=== PATIENT | female | born 1980 | race Caucasian/White ===

== ENCOUNTER 2017-07-05 20:10 | Inpatient (IN) | payer BC ==
[2017-07-05 20:33] VITALS: BMI 33.9
--- NOTE | 2017-07-05 21:34 | PDOC ---
History of Present Illness <Wanda Osborne - Last Filed: 07/05/17 23:00> - General History Source: Patient Exam Limitations: No Limitations - History of Present Illness Initial Comments: 07/05/17 23:21 Patient is a 36 year old female with a significant past medical history of chronic migraine headache who presents to the ED with complaints of migraine that began 1 week ago with no signs of relief. Patient reports driving home with 1 week ago when migraine began and has not subsided. Patient reports the migraine pain is non radiating pain localized in her left side of the head behind her left eye. Patient reports pain to be a 10/10 in intensity. She reports going to [facility] ED yesterday night for migraine and was given tylenol and toroidal for pain with no relief. Patient reports intermittent episodes of nausea secondary to migraine headache. Denies chest pain, SOB. Denies vomiting. Denies fever, chills. Denies any other symptoms. Allergies: None Social history: No smoking. No alcohol. No illicit drugs. Surgical history: Hysterectomy PMD: Dr. Berumen. <Vijay Kinsey - Last Filed: 07/05/17 23:23> - General Chief Complaint: Migraine Headache Stated Complaint: MIGRAINE/HEADACHE Time Seen by Provider: 07/05/17 21:22 Past History - Past Medical History HTN: Yes Seizures: Yes Other medical history: migraines - Suicide/Smoking/Psychosocial Hx Smoking History: Never smoked <Wanda Osborne - Last Filed: 07/05/17 23:00> <Vijay Kinsey - Last Filed: 07/05/17 23:23> - Past Medical History Allergies/Adverse Reactions: Allergies Allergy/AdvReac Type Severity Reaction Status Date / Time No Known Allergies Allergy Verified 07/05/17 20:33 Review of Systems - Review of Systems Able to Perform ROS?: Yes Comments:: 07/05/17 23:21 GENERAL/CONSTITUTIONAL: No fever or chills. No weakness. HEAD, EYES, EARS, NOSE AND THROAT: No change in vision. No ear pain or discharge. No sore throat. GASTROINTESTINAL: No nausea, vomiting, diarrhea or constipation. GENITOURINARY: No dysuria, frequency, or change in urination. CARDIOVASCULAR: No chest pain or shortness of breath. RESPIRATORY: No cough, wheezing, or hemoptysis. MUSCULOSKELETAL: No joint or muscle swelling or pain. No neck or back pain. SKIN: No rash NEUROLOGIC:+Headache No vertigo, loss of consciousness, or change in strength/sensation. ENDOCRINE: No increased thirst. No abnormal weight change. HEMATOLOGIC/LYMPHATIC: No anemia, easy bleeding, or history of blood clots. ALLERGIC/IMMUNOLOGIC: No hives or skin allergy. All Other Systems: Reviewed and Negative <Vijay Kinsey - Last Filed: 07/05/17 23:23> *Physical Exam - Vital Signs Last Vital Signs Temp Pulse Resp BP Pulse Ox 98.4 F 93 H 18 144/104 99 07/05/17 20:30 07/05/17 20:30 07/05/17 20:30 07/05/17 20:30 07/05/17 20:30 <Wanda Osborne - Last Filed: 07/05/17 23:00> - Vital Signs Last Vital Signs Temp Pulse Resp BP Pulse Ox 98.4 F 93 H 18 144/104 99 07/05/17 20:30 07/05/17 20:30 07/05/17 20:30 07/05/17 20:30 07/05/17 20:30 - Physical Exam Comments: 07/05/17 23:23 GENERAL: Awake, alert, and fully oriented, in no acute distress HEAD: No signs of trauma EYES: PERRLA, EOMI, sclera anicteric, conjunctiva clear ENT: Auricles normal inspection, hearing grossly normal, nares patent, oropharynx clear without exudates. Moist mucosa NECK: Normal ROM, supple, no lymphadenopathy, JVD, or masses LUNGS: Breath sounds equal, clear to auscultation bilaterally. No wheezes, and no crackles HEART: Regular rate and rhythm, normal S1 and S2, no murmurs, rubs or gallops ABDOMEN: Soft, nontender, normoactive bowel sounds. No guarding, no rebound. No masses EXTREMITIES: Normal range of motion, no edema. No clubbing or cyanosis. No cords, erythema, or tenderness NEUROLOGICAL: Cranial nerves II through XII grossly intact. Normal speech, SKIN: Warm, Dry, normal turgor, no rashes or lesions noted. <Vijay Kinsey - Last Filed: 07/05/17 23:23> Heart Score/ECG Review - ECG Intrepretation Comment:: 07/05/17 23:00 sinus at 74, nl axis, nl interval, no acute st/t wave findings. pr 166, qrs 88, qtc 430 <Wanda Osborne - Last Filed: 07/05/17 23:00> ED Treatment Course - LABORATORY CBC & Chemistry Diagram: 07/05/17 22:49 07/05/17 22:49 - ADDITIONAL ORDERS Additional order review: 07/05/17 22:49 RBC 4.15 MCV 92.7 MCHC 34.7 RDW 13.0 MPV 9.0 Neutrophils % 56.8 Lymphocytes % 33.1 Monocytes % 7.4 Eosinophils % 2.3 Basophils % 0.4 - Medications Given in the ED: ED Medications Discontinued Medications Generic Name Dose Route Start Last Admin Trade Name Peterq PRN Reason Stop Dose Admin Diphenhydramine HCl 25 mg 07/05/17 22:00 07/05/17 22:46 Benadryl Injection - IVPUSH 07/05/17 22:01 25 mg ONCE ONE Administration Ketorolac Tromethamine 30 mg 07/05/17 22:00 07/05/17 22:46 Toradol Injection - IVPUSH 07/05/17 22:01 30 mg ONCE ONE Administration Metoclopramide HCl 10 mg 07/05/17 22:00 07/05/17 22:46 Reglan Injection - IVPUSH 07/05/17 22:01 10 mg ONCE ONE Administration Sodium Chloride 1,000 ml 07/05/17 22:00 07/05/17 22:46 Normal Saline - IV 07/05/17 22:01 1,000 ml ONCE ONE Administration <Vijay Kinsey - Last Filed: 07/05/17 23:23> Medical Decision Making - Medical Decision Making 07/05/17 22:55 a/p: pt sent from Dr. Sanchez ([phone]) for DHE iv q8h for migraine ramirez -no change in headache type -failed outpt therapy -Dr. Sanchez requests admission to Hospitalist. -labs -no change in ramirez type, no meningeal signs, no focal neuro deficits, has had imaging in the past, will hold off on imaging at this time. -hx of hysterectomy - no beta hcg needed 07/05/17 22:58 pt receiving DHE for ramirez. 07/05/17 22:58 case discussed with IM resident who accepts admission to service under Dr. Yan. <Wanda Osborne - Last Filed: 07/05/17 23:00> *DC/Admit/Observation/Transfer - Discharge Dispostion Admit: Yes - Attestations Physician Attestion: 07/05/17 22:58 I, Dr. Wanda Osborne DO, attest that this document has been prepared under my direction and personally reviewed by me in its entirety. I further attest, that it accurately reflects all work, treatment, procedures and medical decision -making performed by me. <Wanda Osborne - Last Filed: 07/05/17 23:00> - Attestations Scribe Attestion: 07/05/17 23:23 Documentation prepared by Vijay Kinsey, acting as lpn or medical assistant for Wanda Osborne DO, MD/. <Vijay Kinsey - Last Filed: 07/05/17 23:23> Diagnosis at time of Disposition: Migraine - Discharge Dispostion Condition at time of disposition: Stable - Referrals Referrals: Deni Berumen DO [Primary Care Provider] -
[2017-07-05] MEDS ORDERED: METOCLOPRAMIDE HCL INJECTION 10 MG/2 ML VIAL IVPUSH ONE (22:00)
[2017-07-05] MEDS ORDERED: KETOROLAC TROMETHAMINE 30 MG/1 ML VIAL IVPUSH ONE (22:00)
[2017-07-05] MEDS ORDERED: SODIUM CHLORIDE 0.9% 1000 ML INFUS.BAG IV ONE (22:00)
[2017-07-05] MEDS ORDERED: MAGNESIUM SULF 50% (8.12 MEQ/2 ML-1 GM VIAL) IVPB ONE (22:00)
[2017-07-05] MEDS ORDERED: DIHYDROERGOTAMINE MESYLATE 1 MG/1 ML AMPULE IVPB ONE (22:10)
[2017-07-05] MEDS ORDERED: METOCLOPRAMIDE HCL INJECTION 10 MG/2 ML VIAL ONE (22:17)
[2017-07-05] MEDS ORDERED: MAGNESIUM SULF 50% (8.12 MEQ/2 ML-1 GM VIAL) ONE (22:18)
[2017-07-05] MEDS ORDERED: KETOROLAC TROMETHAMINE 30 MG/1 ML VIAL ONE (22:18)
[2017-07-05 23:06] LABS: BASOPHIL 0.4 % (0-2.0); EOSINOPHIL 2.3 % (0-4.5); MCH 32.2 pg (25.7-33.7); MCHC 34.7 g/dl (32.0-36.0); MEAN CELL VOLUME 92.7 fl (80-96); NEUTROPHILS 56.8 % (42.8-82.8); PLATELET COUNT 225 K/MM3 (134-434); WHITE BLOOD COUNT 7.3 K/mm3 (4.0-10.0)
--- NOTE | 2017-07-05 23:15 | HP ---
CHIEF COMPLAINT: sever migraine headache PCP:Dr. Berumen. HISTORY OF PRESENT ILLNESS: Patient is a 36 year old female with a significant past medical history of chronic migraine headache who presents to the ED with complaints of migraine that began 1 week ago with no signs of relief. Patient reports driving home with 1 week ago when migraine began and has not subsided. Patient reports the migraine pain is non radiating pain localized in her left side of the head behind her left eye. Patient reports pain to be a 10/10 in intensity. She reports going to [facility] ED yesterday night for migraine and was given tylenol and toroidal for pain with no relief. Patient reports intermittent episodes of nausea secondary to migraine headache. She Denies chest pain, SOB, palpitation. Denies vomiting, diarrhea, constipation. Denies fever, chills, anxiety, depression. Denies any other symptoms. 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 -) 0.5 mg IVPB Q8H [facility] Last Admin: 07/06/17 13:19 Dose: 0.5 mg Diphenhydramine HCl (Benadryl Injection -) 25 mg IVPB Q8H [facility] Last Admin: 07/06/17 12:38 Dose: 25 mg Enoxaparin Sodium (Lovenox -) 40 mg SQ DAILY [facility] Last Admin: 07/06/17 10:27 Dose: 40 mg Hydromorphone HCl (Dilaudid Injection -) 0.5 mg IM Q4H PRN PRN Reason: PAIN Ketorolac Tromethamine (Toradol Injection -) 30 mg IVPB DAILY PRN PRN Reason: PAIN Stop: 07/11/17 09:57 Metoclopramide HCl (Reglan Injection -) 10 mg IVPB Q8H [facility] Last Admin: 07/06/17 12:38 Dose: 10 mg Topiramate (Topamax -) 100 mg PO BID [facility] HOME MEDICATIONS: REVIEW OF SYSTEMS CONSTITUTIONAL: Absent: Headache,fever, chills, diaphoresis, generalized weakness, malaise, loss of appetite, weight change HEENT: Absent: rhinorrhea, nasal congestion, throat pain, throat swelling, difficulty swallowing, mouth swelling, ear pain, eye pain, visual changes CARDIOVASCULAR: Absent: chest pain, syncope, palpitations, irregular heart rate, lightheadedness , peripheral edema RESPIRATORY: Absent: cough, shortness of breath, dyspnea with exertion, orthopnea, wheezing, stridor, hemoptysis GASTROINTESTINAL: Absent: abdominal pain, abdominal distension, nausea, vomiting, diarrhea, constipation, melena, hematochezia GENITOURINARY: Absent: dysuria, frequency, urgency, hesitancy, hematuria, flank pain, genital pain MUSCULOSKELETAL: Absent: myalgia, arthralgia, joint swelling, back pain, neck pain SKIN: Absent: rash, itching, pallor HEMATOLOGIC/IMMUNOLOGIC: Absent: easy bleeding, easy bruising, lymphadenopathy, frequent infections ENDOCRINE: Absent: unexplained weight gain, unexplained weight loss, heat intolerance, cold intolerance NEUROLOGIC: Absent: headache, focal weakness or paresthesias, dizziness, unsteady gait, seizure, mental status changes, bladder or bowel incontinence PSYCHIATRIC: Absent: anxiety, depression, suicidal or homicidal ideation, hallucinations. PHYSICAL EXAMINATION Vital Signs - 24 hr 07/05/17 20:30 Temperature 98.4 F Pulse Rate 93 H Respiratory 18 Rate Blood Pressure 144/104 O2 Sat by Pulse 99 Oximetry (%) GENERAL: Awake, alert, and fully oriented, in mild distress. HEAD: Normal with no signs of trauma. EYES: Pupils equal, round and reactive to light, extraocular movements intact, sclera anicteric, conjunctiva clear. No lid lag. EARS, NOSE, THROAT: Moist mucous membranes. NECK: Normal range of motion, supple without lymphadenopathy, JVD, or masses. LUNGS: Breath sounds equal, clear to auscultation bilaterally. No wheezes, and no crackles. No accessory muscle use. HEART: Regular rate and rhythm, normal S1 and S2 without murmur, rub or gallop. ABDOMEN: Soft, nontender, not distended, normoactive bowel sounds, no guarding, no rebound. MUSCULOSKELETAL: Normal range of motion at all joints. No bony deformities or tenderness. No CVA tenderness. LOWER EXTREMITIES: 2+ pulses, warm, well-perfused. No calf tenderness. No peripheral edema. NEUROLOGICAL: Cranial nerves II-XII intact. Normal speech. Normal gait. PSYCHIATRIC: Cooperative. Good eye contact. Appropriate mood and affect. SKIN: Warm, dry, no rashes or lesions noted, normal capillary refill. CBC, BMP 07/06/17 09:30 07/06/17 09:30 ASSESSMENT/PLAN: 36 yo F with PMX of chronic migraine, presented to the ED with one week history of sever, persistent migraine headache that failed out patient treatment. admitted to observation for acute migraine attack. #Acute migraine attack * Dihydroergotamine 0.5 IVPB Q8H X 3days,will titrate if tolerates and JOYA continue, * Zofran for n/v control * Dilauded 0.5 Q 2 Hr for pain * Neurology consultation Dr Alarcon #HTN * continue home med verapamil 120 daily * monitor #h/o seizure disorder * last seizure few months ago * continue home meds Topramax, Amitriptilin, verapamil * #FEN * F: on no fluids * E : monitor * N: low sodium diet #Prophylaxis * DVT: SCDs, both legs * GI: not indicated #Dispo * admit to observ for IV DHE Visit type - Emergency Visit Emergency Visit: Yes ED Registration Date: 07/05/17 Care time: The patient presented to the Emergency Department on the above date and was hospitalized for further evaluation of their emergent condition. - New Patient This patient is new to me today: Yes Date on this admission: 07/06/17 - Critical Care Critical Care patient: No
[2017-07-05 23:39] LABS: ALBUMIN 3.4 g/dl (3.4-5.0); ALK PHOS 58 U/L (45-117); ANION GAP 7 (8-16); BILIRUBIN,TOTAL 0.3 mg/dL (0.2-1.0); CALCIUM 8.7 mg/dL (8.5-10.1); CO2 29 mmol/L (21-32); CREATININE 0.6 mg/dL (0.55-1.02); GLUCOSE,RANDOM 102 mg/dL (74-106); MAGNESIUM 1.9 mg/dL (1.8-2.4); SGOT/AST 27 U/L (15-37); SGPT/ALT 51 U/L (12-78); TOT PROT 6.6 g/dl (6.4-8.2)
[2017-07-05] MEDS ORDERED: DIHYDROERGOTAMINE MESYLATE 1 MG/1 ML AMPULE IVPUSH ONE (23:45)
--- NOTE | 2017-07-05 23:58 | HP ---
Admitting History and Physical - Primary Care Physician PCP: Deni Berumen - Admission Chief Complaint: Headache History of Present Illness: 36 yo F h/o migraine presented to the ED with intractable headache x 1 week. Patient states that she'd get migraine flare-up once in a while despite being on medications for chronic migraine, for which she would need dihydroergotamine IV Q8H for days. The quality and type of headache remain unchanged compared to her regular migraine symptom but the intensity of 10/10 this time. She denies focal weakness, facial droop, vision change, fever, chills, shortness of breath or chest pain. 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 - Past Surgical History Past Surgical History: Yes: Hysterectomy - Smoking History Smoking history: Never smoked - Alcohol/Substance Use Hx Alcohol Use: No History of Substance Use: reports: None Home Medications - Allergies Allergies/Adverse Reactions: Allergies Allergy/AdvReac Type Severity Reaction Status Date / Time No Known Allergies Allergy Verified 07/05/17 20:33 Review of Systems - Review of Systems Constitutional: reports: Other (uncomfortable due to persistent headache) Eyes: denies: Blurred Vision, Double Vision, Photophobia Neck: denies: Stiffness, Tenderness Cardiovascular: reports: No Symptoms Respiratory: reports: No Symptoms Gastrointestinal: reports: No Symptoms Genitourinary: reports: No Symptoms Musculoskeletal: reports: No Symptoms Integumentary: reports: No Symptoms Neurological: reports: Headache. denies: Change in Speech, Confusion, Dizziness , Numbness, Parasthesia Endocrine: reports: No Symptoms Physical Examination Vital Signs: Vital Signs Temperature 98.4 F 07/05/17 20:30 Pulse Rate 93 H 07/05/17 20:30 Respiratory Rate 18 07/05/17 20:30 Blood Pressure 144/104 07/05/17 20:30 O2 Sat by Pulse Oximetry (%) 99 07/05/17 20:30 Constitutional: Yes: Well Nourished Eyes: Yes: WNL HENT: Yes: WNL Neck: Yes: WNL Cardiovascular: Yes: Regular Rate and Rhythm Respiratory: Yes: CTA Bilaterally Gastrointestinal: Yes: WNL, Normal Bowel Sounds, Soft Extremities: Yes: WNL Neurological: Yes: Alert, Oriented, Cran Nerves II-XII Intact ...Motor Strength: WNL Assessment/Plan 36 yo F admitted to med-surg for acute migraine attack. Acute migraine attack - Dihydroergotamine IVPB Q8H - Zofran for n/v control HTN - Cont. home meds h/o seizure disorder - Cont. home meds Prophylaxis - DVT: SCDs - GI: not indicated Dispo - Awaiting ED nurse to obtain med list - Admit to obs Visit type - Emergency Visit Emergency Visit: Yes ED Registration Date: 07/05/17 Care time: The patient presented to the Emergency Department on the above date and was hospitalized for further evaluation of their emergent condition. - New Patient This patient is new to me today: Yes Date on this admission: 07/06/17 - Critical Care Critical Care patient: No
[2017-07-06] MEDS ORDERED: ONDANSETRON *ODT* 4 MG TABLET SL PRN (00:13)
[2017-07-06] MEDS ORDERED: METOCLOPRAMIDE HCL INJECTION 10 MG/2 ML VIAL IVPUSH PRN (00:16)
--- NOTE | 2017-07-06 03:28 | PN ---
Teaching Attending Note Name of Resident: Valdez Sarah ATTENDING PHYSICIAN STATEMENT I saw and evaluated the patient. I reviewed the resident's note and discussed the case with the resident. I agree with the resident's findings and plan as documented. OBJECTIVE: Last Vital Signs Temp Pulse Resp BP Pulse Ox 98.4 F 93 H 18 144/104 99 07/05/17 20:30 07/05/17 20:30 07/05/17 20:30 07/05/17 20:30 07/05/17 20:30 ASSESSMENT AND PLAN: The patient is a 36 year old female with a significant past medical history of chronic migraine headache, s/p ADRI, who presented to the ED with status migrainosis at the encouragement of her neurologist and is being placed on observation for further evaluation and treatment including IV DHE. #Status migrainosis with intractable pain No evidence of meningitis / encephalitis / intracranial hemorrhage Risks and benefits of neuroimagine were discussed with the patient by the ED and by our team (by resident and again by me) and she elected against any neuroimaging Continue DHE IV Q6hrs Dilaudid 0.5mg [id number] for breakthrough pain Neurology consult See resident note for full details
[2017-07-06] MEDS: DIHYDROERGOTAMINE MESYLATE 1 MG/1 ML AMPULE IVPB SCH ×3 (05:18→21:03)
[2017-07-06] MEDS ORDERED: HYDROmorphone HCL CARPU-JECT 1 MG/1 ML DISP.SYRIN ONE (07:53)
[2017-07-06] MEDS: HYDROmorphone HCL CARPU-JECT 1 MG/1 ML DISP.SYRIN IM PRN ×2 (07:57→11:25)
[2017-07-06 10:09] LABS: MCHC 34.6 g/dl (32.0-36.0); MEAN CELL VOLUME 92.4 fl (80-96); MEAN PLT VOLUME 8.5 fl (7.5-11.1); PLATELET COUNT 254 K/MM3 (134-434)
[2017-07-06] MEDS: ENOXAPARIN NA (PORCINE) 40 MG/0.4 ML DISP.SYRIN SQ SCH (10:27)
[2017-07-06 10:34] LABS: ANION GAP 6 (8-16); CALCIUM 9.1 mg/dL (8.5-10.1); CO2 27 mmol/L (21-32); CREATININE 0.6 mg/dL (0.55-1.02); GLUCOSE,RANDOM 81 mg/dL (74-106)
[2017-07-06] MEDS: METOCLOPRAMIDE HCL INJECTION 10 MG/2 ML VIAL IVPB SCH ×2 (12:38→20:32)
[2017-07-06] MEDS ORDERED: DIHYDROERGOTAMINE MESYLATE 1 MG/1 ML AMPULE IVPB SCH ×2 (13:00→18:00)
--- NOTE | 2017-07-06 15:17 | CON.NEURO ---
Consult - History of Present Illness History of Present Illness: 36 year old female, pt known to me, with a significant past medical history of chronic migraine headache who presents to the ED with complaints of migraine that began 1 week ago with no signs of relief. Patient reports driving home with 1 week ago when migraine began and has not subsided. Patient reports the migraine pain is non radiating pain localized in her left side of the head behind her left eye. Patient reports pain to be a 10/10 in intensity. She reports going to [facility] ED yesterday night for migraine and was given tylenol and toroidal for pain with no relief. Patient reports intermittent episodes of nausea secondary to migraine headache. HX of occipital neuralgia and receives RF ablation for this at [facility]. Feels these JOYA are more related to migraines. takes occ. Dilaudid when JOYA overpowering; no hx of addiction tho this. receives Botox as outpt. HX of seizures-stable. 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 - Past Surgical History Past Surgical History: Yes: Hysterectomy - Alcohol/Substance Use Hx Alcohol Use: No History of Substance Use: reports: None - Smoking History Smoking history: Never smoked Home Medications - Allergies Allergies/Adverse Reactions: Allergies Allergy/AdvReac Type Severity Reaction Status Date / Time No Known Allergies Allergy Verified 07/05/17 20:33 - Home Medications Home Medications: Ambulatory Orders Amitriptyline HCl [Elavil -] 50 mg PO HS 07/06/17 Topiramate [Topamax] 100 mg PO BID 07/06/17 Verapamil HCl [Verapamil ER Pm] 120 mg PO DAILY 07/06/17 Physical Exam-Neuro Vital Signs: Vital Signs Temperature 98.0 F 07/06/17 08:01 Pulse Rate 80 07/06/17 08:01 Respiratory Rate 18 07/06/17 08:01 Blood Pressure 140/98 07/06/17 08:01 O2 Sat by Pulse Oximetry (%) 99 07/06/17 08:01 Constitutional: Yes: Well Nourished Neck: Yes: WNL Cardiovascular: Yes: Regular Rate and Rhythm Respiratory: Yes: CTA Bilaterally Labs: CBC, BMP 07/06/17 09:30 07/06/17 09:30 - Neuro Exam Level Of Consciousness: Yes: Alert, Oriented to Person Eyes: Yes: PERRLA Cranial Nerves II-XII Intact: Yes Babinski: Absent Response to light touch: Normal Response to pain prick: Normal Motor Strength: 5/5: Left Arm, Right Arm, Left Leg, Right Leg Gait: Normal Problem List - Problems (1) Status migrainosus Code(s): G43.901 - MIGRAINE, UNSP, NOT INTRACTABLE, WITH STATUS MIGRAINOSUS Assessment/Plan Status migrainousis JOYA x one week, intractable; receives BOTOX as outpt, no repsosne to steroids, dilaudid, triptans, and recent Er admission for JOYA; started on DHE protocol 0.5 IV q8--x 3 days; inc DHE 0.[address] Berumen [phone]
[2017-07-06] MEDS ORDERED: HYDROmorphone HCL CARPU-JECT 1 MG/1 ML DISP.SYRIN IM PRN (16:21)
[2017-07-06] MEDS ORDERED: VERAPAMIL HCL 120 MG TABLET PO SCH (16:30)
[2017-07-06] MEDS ORDERED: PT OWN MED DRAWER 7, Y5N ONE ×2 (16:59→17:27)
--- NOTE | 2017-07-06 17:27 | PN ---
Physical Exam: SUBJECTIVE: Patient seen and examined at bedside. Has had 2 infusions so far. Each time got about 1-1 1/2 hours of headache relief and then returned. OBJECTIVE: Vital Signs Period Temp Pulse Resp BP Sys/Ames Pulse Ox Last 24 Hr 97.8 F-98.3 F 78-91 16-18 138-145/86-100 99-100 GENERAL: The patient is awake, alert, and fully oriented, in no acute distress. LUNGS: Breath sounds equal, clear to auscultation bilaterally, no wheezes, no crackles, no accessory muscle use. HEART: Regular rate and rhythm, S1, S2 without murmur, rub or gallop. ABDOMEN: Soft, nontender, nondistended, normoactive bowel sounds, no guarding, no rebound, no hepatosplenomegaly, no masses. EXTREMITIES: 2+ pulses, warm, well-perfused, no edema. NEUROLOGICAL: Cranial nerves II through XII grossly intact. Normal speech, gait not observed. Laboratory Results - last 24 hr 07/06/17 07/06/17 09:30 09:30 WBC 9.0 RBC 4.71 Hgb 15.0 D Hct 43.5 MCV 92.4 MCH 32.0 MCHC 34.6 RDW 13.0 Plt Count 254 MPV 8.5 Sodium 138 Potassium 3.8 Chloride 105 Carbon Dioxide 27 Anion Gap 6 L BUN 12 Creatinine 0.6 Random Glucose 81 D Calcium 9.1 Active Medications Generic Name Dose Route Start Last Admin Trade Name Freq PRN Reason Stop Dose Admin Amitriptyline HCl 50 mg 07/06/17 22:00 Elavil - PO HS [facility] Dihydroergotamine Mesylate 0.75 mg 07/06/17 18:00 D.H.E. - IVPB Q8H-IV [facility] Diphenhydramine HCl 25 mg 07/06/17 12:30 07/06/17 12:38 Benadryl Injection - IVPB 25 mg Q8H [facility] Administration Enoxaparin Sodium 40 mg 07/06/17 10:00 07/06/17 10:27 Lovenox - SQ 40 mg DAILY [facility] Administration Hydromorphone HCl 0.5 mg 07/06/17 16:21 Dilaudid Injection - IM Q4H PRN PAIN Ketorolac Tromethamine 30 mg 07/06/17 09:58 Toradol Injection - IVPB 07/11/17 09:57 DAILY PRN PAIN Metoclopramide HCl 10 mg 07/06/17 12:30 07/06/17 12:38 Reglan Injection - IVPB 10 mg Q8H [facility] Administration Topiramate 100 mg 07/06/17 22:00 Topamax - PO BID [facility] ASSESSMENT/PLAN 36 year-old female with a PMH significant for occipital neuralgia, migraine, seizure disorder and s/p ADRI. Regularly followed by Dr. Berumen. Admitted for intractable migraine on DHE IV protocol therapy for minimum of three (3) days. Status migrainosis with intractable pain --continue DHE infusion protocol; dose increased today by Dr. Berumen --benadryl and reglan q8h --dilaudid, toradol PRN --restarted home topiramate and amitriptyline; did NOT restart home verapramil to due interaction warning with DHE --Dr. Berumen following DVT prophylaxis: subq lovenox Dispo: continues to require inpatient care. Full code. Visit type - Emergency Visit Emergency Visit: Yes ED Registration Date: 07/05/17 Care time: The patient presented to the Emergency Department on the above date and was hospitalized for further evaluation of their emergent condition. - New Patient This patient is new to me today: Yes Date on this admission: 07/06/17 - Critical Care Critical Care patient: No
[2017-07-06] MEDS: KETOROLAC TROMETHAMINE 30 MG/1 ML VIAL IVPB PRN (17:40)
[2017-07-06] MEDS: TOPIRAMATE 100 MG TABLET PO SCH (21:05)
[2017-07-06] MEDS ORDERED: AMITRIPTYLINE HCL 50 MG TABLET PO SCH (22:00)
[2017-07-07] MEDS: METOCLOPRAMIDE HCL INJECTION 10 MG/2 ML VIAL IVPB SCH ×2 (04:36→15:20)
[2017-07-07] MEDS: DIHYDROERGOTAMINE MESYLATE 1 MG/1 ML AMPULE IVPB SCH ×4 (05:20→17:03)
[2017-07-07 08:15] LABS: BASOPHIL 0.3 % (0-2.0); EOSINOPHIL 3.2 % (0-4.5); MCH 32.2 pg (25.7-33.7); MCHC 34.6 g/dl (32.0-36.0); MEAN CELL VOLUME 93.1 fl (80-96); MEAN PLT VOLUME 8.9 fl (7.5-11.1); NEUTROPHILS 69.2 % (42.8-82.8); PLATELET COUNT 226 K/MM3 (134-434); RDW 12.8 % (11.6-15.6); WHITE BLOOD COUNT 8.5 K/mm3 (4.0-10.0)
[2017-07-07 08:43] LABS: ALBUMIN 3.7 g/dl (3.4-5.0); ALK PHOS 71 U/L (45-117); ANION GAP 4 (8-16); BILIRUBIN,TOTAL 0.7 mg/dL (0.2-1.0); CALCIUM 9.5 mg/dL (8.5-10.1); CO2 28 mmol/L (21-32); CREATININE 0.6 mg/dL (0.55-1.02); GLUCOSE,RANDOM 82 mg/dL (74-106); MAGNESIUM 2.4 mg/dL (1.8-2.4); SGOT/AST 35 U/L (15-37); SGPT/ALT 57 U/L (12-78); TOT PROT 7.5 g/dl (6.4-8.2)
--- NOTE | 2017-07-07 08:44 | EKG ---
Test Reason : Blood Pressure : / mmHG Vent. Rate : 074 BPM Atrial Rate : 074 BPM P-R Int : 166 ms QRS Dur : 088 ms QT Int : 388 ms P-R-T Axes : 058 059 059 degrees QTc Int : 430 ms NORMAL SINUS RHYTHM NORMAL ECG NO PREVIOUS ECGS AVAILABLE Confirmed by MD JL, KENNEDY ([id number]) on 07/07/2017 8:43:44 AM Referred By: Confirmed By:KENNEDY PARIKH MD
[2017-07-07] MEDS: ENOXAPARIN NA (PORCINE) 40 MG/0.4 ML DISP.SYRIN SQ SCH (10:00)
[2017-07-07] MEDS ORDERED: PT OWN MED DRAWER 7, Y5N ONE ×3 (10:03→21:45)
[2017-07-07] MEDS: TOPIRAMATE 100 MG TABLET PO SCH ×2 (10:05→22:03)
[2017-07-07] MEDS ORDERED: DEXTROSE 5%-NORMAL SALINE 1,000 ML IV SCH ×2 (11:15→17:00)
--- NOTE | 2017-07-07 16:35 | PN ---
Progress Note (short form) - Note Progress Note: 36 year old female, pt known to me, with a significant past medical history of chronic migraine headache who presents to the ED with complaints of migraine that began 1 week ago with no signs of relief. Patient reports driving home with 1 week ago when migraine began and has not subsided. Patient reports the migraine pain is non radiating pain localized in her left side of the head behind her left eye. Patient reports pain to be a 10/10 in intensity. She reports going to [facility] ED yesterday night for migraine and was given tylenol and toroidal for pain with no relief. Patient reports intermittent episodes of nausea secondary to migraine headache. HX of occipital neuralgia and receives RF ablation for this at [facility]. Feels these JOYA are more related to migraines. takes occ. Dilaudid when JOYA overpowering; no hx of addiction tho this. receives Botox as outpt. HX of seizures-stable. 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 - Past Surgical History Past Surgical History: Yes: Hysterectomy - Alcohol/Substance Use Hx Alcohol Use: No History of Substance Use: reports: None - Smoking History Smoking history: Never smoked Home Medications - Allergies Allergies/Adverse Reactions: Allergies Allergy/AdvReac Type Severity Reaction Status Date / Time No Known Allergies Allergy Verified 07/05/17 20:33 - Home Medications Home Medications: Ambulatory Orders Amitriptyline HCl [Elavil -] 50 mg PO HS 07/06/17 Topiramate [Topamax] 100 mg PO BID 07/06/17 Verapamil HCl [Verapamil ER Pm] 120 mg PO DAILY 07/06/17 Physical Exam-Neuro Vital Signs: Vital Signs Temperature 98.4 F 07/07/17 14:39 Pulse Rate 77 07/07/17 14:39 Respiratory Rate 18 07/07/17 14:39 Blood Pressure 142/97 07/07/17 14:39 O2 Sat by Pulse Oximetry (%) 99 07/06/17 16:00 Constitutional: Yes: Well Nourished Neck: Yes: WNL Cardiovascular: Yes: Regular Rate and Rhythm Respiratory: Yes: CTA Bilaterally Labs: CBCD WBC 8.5 K/mm3 (4.0-10.0) 07/07/17 07:00 RBC 4.64 M/mm3 (3.60-5.2) 07/07/17 07:00 Hgb 14.9 GM/dL (10.7-15.3) 07/07/17 07:00 Hct 43.2 % (32.4-45.2) 07/07/17 07:00 MCV 93.1 fl (80-96) 07/07/17 07:00 MCHC 34.6 g/dl (32.0-36.0) 07/07/17 07:00 RDW 12.8 % (11.6-15.6) 07/07/17 07:00 Plt Count 226 K/MM3 (134-434) 07/07/17 07:00 MPV 8.9 fl (7.5-11.1) 07/07/17 07:00 CMP Sodium 140 mmol/L (136-145) 07/07/17 07:00 Potassium 5.0 mmol/L (3.5-5.1) D 07/07/17 07:00 Chloride 108 mmol/L (98-107) H 07/07/17 07:00 Carbon Dioxide 28 mmol/L (21-32) 07/07/17 07:00 Anion Gap 4 (8-16) L 07/07/17 07:00 BUN 14 mg/dL (7-18) 07/07/17 07:00 Creatinine 0.6 mg/dL (0.55-1.02) 07/07/17 07:00 Creat Clearance w eGFR > 60 (>60) 07/07/17 07:00 Calcium 9.5 mg/dL (8.5-10.1) 07/07/17 07:00 Total Bilirubin 0.7 mg/dL (0.2-1.0) D 07/07/17 07:00 AST 35 U/L (15-37) D 07/07/17 07:00 ALT 57 U/L (12-78) 07/07/17 07:00 Alkaline Phosphatase 71 U/L (45-117) D 07/07/17 07:00 Total Protein 7.5 g/dl (6.4-8.2) 07/07/17 07:00 Albumin 3.7 g/dl (3.4-5.0) 07/07/17 07:00 - Neuro Exam Level Of Consciousness: Yes: Alert, Oriented to Person Eyes: Yes: PERRLA Cranial Nerves II-XII Intact: Yes Babinski: Absent Response to light touch: Normal Response to pain prick: Normal Motor Strength: 5/5: Left Arm, Right Arm, Left Leg, Right Leg Gait: Normal Problem List - Problems (1) Status migrainosus Code(s): G43.901 - MIGRAINE, UNSP, NOT INTRACTABLE, WITH STATUS MIGRAINOSUS Assessment/Plan Status migrainousis JOYA x one week, intractable; receives BOTOX as outpt, no response to steroids, dilaudid, triptans, and recent Er admission for JOYA; started on inc DHE 1mg TID and Add depakon 500TID plan for Dc in AM if doing better Dr Berumen [phone] Problem List - Problems (1) Status migrainosus Code(s): G43.901 - MIGRAINE, UNSP, NOT INTRACTABLE, WITH STATUS MIGRAINOSUS
--- NOTE | 2017-07-07 16:47 | PN ---
Physical Exam: SUBJECTIVE: Patient seen and examined. Despite increased dose of DHE, still only getting 1 to 1 1/2 hours of relief per administration. Tearful. OBJECTIVE: Vital Signs Period Temp Pulse Resp BP Sys/Ames Pulse Ox Last 24 Hr 18 GENERAL: The patient is awake, alert, and fully oriented, in mild distress secondary to headache pain. LUNGS: Breath sounds equal, clear to auscultation bilaterally, no wheezes, no crackles, no accessory muscle use. HEART: Regular rate and rhythm, S1, S2 without murmur, rub or gallop. ABDOMEN: Soft, nontender, nondistended, normoactive bowel sounds, no guarding, no rebound, no hepatosplenomegaly, no masses. EXTREMITIES: 2+ pulses, warm, well-perfused, no edema. NEUROLOGICAL: Cranial nerves II through XII grossly intact. Normal speech, gait not observed. Active Medications Generic Name Dose Route Start Last Admin Trade Name Freq PRN Reason Stop Dose Admin Amitriptyline HCl 50 mg 07/07/17 22:00 Elavil - PO HS EULALIA Dihydroergotamine Mesylate 1 mg 07/07/17 18:00 D.H.E. - IVPB Q8H-IV EULALIA Diphenhydramine HCl 25 mg 07/06/17 12:30 07/07/17 13:23 Benadryl Injection - IVPB 25 mg Q8H EULALIA Administration Enoxaparin Sodium 40 mg 07/06/17 10:00 07/07/17 10:00 Lovenox - SQ 40 mg DAILY EULALIA Administration Hydromorphone HCl 0.5 mg 07/06/17 16:21 07/07/17 11:03 Dilaudid Injection - IM 0.5 mg Q4H PRN Administration PAIN Dextrose/Sodium Chloride 1,000 mls @ 75 mls/hr 07/07/17 11:15 07/07/17 13:23 D5-Ns - IV 75 mls/hr ASDIR EULALIA Administration Ketorolac Tromethamine 30 mg 07/06/17 09:58 07/06/17 17:40 Toradol Injection - IVPB 07/11/17 09:57 30 mg DAILY PRN Administration PAIN Metoclopramide HCl 10 mg 07/06/17 12:30 07/07/17 15:20 Reglan Injection - IVPB 10 mg Q8H EULALIA Administration Topiramate 100 mg 07/06/17 22:00 07/07/17 10:05 Topamax - PO 100 mg BID EULALIA Administration Valproate Sodium 500 mg 07/07/17 22:00 Depacon Injection - IVPB TID EULALIA ASSESSMENT/PLAN 36 year-old female with a PMH significant for occipital neuralgia, migraine, seizure disorder and s/p ADRI. Regularly followed by Dr. Berumen. Admitted for intractable migraine on DHE IV protocol therapy. Status migrainosis with intractable pain --continue DHE infusion --benadryl and reglan q8h --dilaudid, toradol PRN --valproate IV 500mg TID --restarted home topiramate and amitriptyline; do not restart home verapramil due to interaction with DHE --Dr. Berumen following F/E/N Fluids: decereased PO intake; gentle IV fluids (watch BP) Electrolytes: replete as indicated Nutrition: sodium controlled DVT prophylaxis: subq lovenox Dispo: continues to require inpatient care. Full code. Visit type - Emergency Visit Emergency Visit: Yes ED Registration Date: 07/07/17 Care time: The patient presented to the Emergency Department on the above date and was hospitalized for further evaluation of their emergent condition. - New Patient This patient is new to me today: No - Critical Care Critical Care patient: No
[2017-07-07] MEDS: AMITRIPTYLINE HCL 25 MG TABLET (FP) PO SCH (22:02)
[2017-07-07] MEDS: KETOROLAC TROMETHAMINE 30 MG/1 ML VIAL IVPB PRN (22:02)
[2017-07-07] MEDS: VALPROATE SODIUM 500 MG/5 ML VIAL IVPB SCH (23:12)
[2017-07-08] MEDS: METOCLOPRAMIDE HCL INJECTION 10 MG/2 ML VIAL IVPB SCH ×3 (01:59→17:41)
[2017-07-08] MEDS: DIHYDROERGOTAMINE MESYLATE 1 MG/1 ML AMPULE IVPB SCH ×3 (02:43→18:30)
[2017-07-08] MEDS: VALPROATE SODIUM 500 MG/5 ML VIAL IVPB SCH ×3 (06:48→21:00)
[2017-07-08] MEDS ORDERED: PT OWN MED DRAWER 7, Y5N ONE ×2 (09:41→21:31)
[2017-07-08] MEDS: ENOXAPARIN NA (PORCINE) 40 MG/0.4 ML DISP.SYRIN SQ SCH (11:21)
[2017-07-08] MEDS: TOPIRAMATE 100 MG TABLET PO SCH ×2 (11:22→23:00)
--- NOTE | 2017-07-08 11:22 | EKG ---
Test Reason : Blood Pressure : / mmHG Vent. Rate : 074 BPM Atrial Rate : 074 BPM P-R Int : 176 ms QRS Dur : 094 ms QT Int : 402 ms P-R-T Axes : 058 070 066 degrees QTc Int : 446 ms NORMAL SINUS RHYTHM NORMAL ECG WHEN COMPARED WITH ECG OF 05-JUL-2017 22:29, NO SIGNIFICANT CHANGE WAS FOUND Confirmed by CARROLL MONTE MD ([id number]) on 07/08/2017 11:22:19 AM Referred By: Jah GARCIA Confirmed By:CARROLL MONTE MD
[2017-07-08] MEDS: HYDROmorphone HCL CARPU-JECT 1 MG/1 ML DISP.SYRIN IVPB PRN (13:35)
[2017-07-08] MEDS: SODIUM CHLORIDE 1,000 ML IV SCH (14:26)
--- NOTE | 2017-07-08 14:27 | PN ---
Physical Exam: SUBJECTIVE: Patient seen and examined. No acute events overnight. Pt reports that pain is improved from 8/10 to 4/10 for 2 hours after receiving pain medications, but then returns to 8/10. She denies nausea, emesis, SOB, chest pain, or dysuria. OBJECTIVE: Vital Signs Period Temp Pulse Resp BP Sys/Ames Pulse Ox Last 24 Hr 97.3 F-98.9 F 68-80 15-18 102-130/53-87 GENERAL: The patient is awake, alert, and fully oriented, in mild distress. HEAD: Normal with no signs of trauma. EYES: PERRL, extraocular movements intact, sclera anicteric, conjunctiva clear. No ptosis. ENT: Ears normal, nares patent, oropharynx clear without exudates, moist mucous membranes. NECK: Trachea midline, full range of motion, supple. LUNGS: CTAB, no wheezing HEART: Regular rate and rhythm, S1, S2 without murmur, rub or gallop. ABDOMEN: Soft, nontender, nondistended, normoactive bowel sounds, no guarding, no rebound, no hepatosplenomegaly, no masses. EXTREMITIES: no LE edema NEUROLOGICAL: Cranial nerves II through XII grossly intact. Normal speech, gait not observed. PSYCH: Normal mood, normal affect. Active Medications Generic Name Dose Route Start Last Admin Trade Name Freq PRN Reason Stop Dose Admin Amitriptyline HCl 50 mg 07/07/17 22:00 07/07/17 22:02 Elavil - PO 50 mg HS EULALIA Administration Dihydroergotamine Mesylate 1 mg 07/07/17 18:00 07/08/17 11:21 D.H.E. - IVPB 1 mg Q8H-IV EULALIA Administration Diphenhydramine HCl 25 mg 07/08/17 17:30 Benadryl Injection - IVPUSH Q8H EULALIA Enoxaparin Sodium 40 mg 07/06/17 10:00 07/08/17 11:21 Lovenox - SQ 40 mg DAILY EULALIA Administration Hydromorphone HCl 0.5 mg 07/08/17 13:14 07/08/17 13:35 Dilaudid Injection - IVPB 0.5 mg Q4H PRN Administration PAIN Sodium Chloride 1,000 mls @ 50 mls/hr 07/08/17 12:45 Normal Saline - IV 07/11/17 12:36 ASDIR EULALIA Ketorolac Tromethamine 30 mg 07/06/17 09:58 07/07/17 22:02 Toradol Injection - IVPB 07/08/17 18:00 30 mg DAILY PRN Administration PAIN Metoclopramide HCl 10 mg 07/08/17 01:40 07/08/17 10:27 Reglan Injection - IVPB 10 mg Q8H EULALIA Administration Topiramate 100 mg 07/06/17 22:00 07/08/17 11:22 Topamax - PO 100 mg BID EULALIA Administration Valproate Sodium 500 mg 07/07/17 22:00 07/08/17 06:48 Depacon Injection - IVPB 500 mg TID EULALIA Administration ASSESSMENT/PLAN: 36F w/ hx of chronic migraines, seizure disorder, and HTN admitted for status migrainosus, being treated with IV DHE. #Acute Migraine -Neuro on board- Dr. Berumen (closely followed by him as outpt, pt receives botox) -continue DHE 1mg IV q8h, benadryl 25mg IV q8h, valproate 500mg TID, dilaudid 0.5mg IM q4h PRN, amitripyline 50mg qd, reglan 10mg IV q8h -discontinue toradol 30mg IV qd at 6pm after 3 day course due to renal effects -monitor response #Seizure Disorder -continue topiramate 100mg BID #HTN -BPs today 100-125/50-75 -verapamil held due to interaction with DHE -continue monitoring #FEN/PPx -NS at 50 -wnl in last BMP -sodium controlled diet -no GI ppx indicated -lovenox 40 #Dispo -home pending adequate treatment response Jeremías Dumas MD PGY1 Visit type - Emergency Visit Emergency Visit: Yes ED Registration Date: 07/07/17 Care time: The patient presented to the Emergency Department on the above date and was hospitalized for further evaluation of their emergent condition. - New Patient This patient is new to me today: Yes Date on this admission: 07/08/17 - Critical Care Critical Care patient: No
--- NOTE | 2017-07-08 20:00 | PN ---
Teaching Attending Note Name of Resident: Jeremías Dumas ATTENDING PHYSICIAN STATEMENT I saw and evaluated the patient. I reviewed the resident's note and discussed the case with the resident. I agree with the resident's findings and plan as documented. SUBJECTIVE: cot with L sided JOYA , photophobia no weakness . OBJECTIVE: NAD CV: RRR Lung s: CTAB Ext : no edema Neuro : EOMI, round equal reactive pupils . strength 5/5 in upper and lower extremities , relfexes 2+ biceps , 1+ knee jerk b/l . no facial droop. NL sensation ASSESSMENT AND PLAN: 36 y/o lady wtih h/o occipital neuralgia and migraines who presented wt JOYA 1- Status Migrainosis : - increase DHE to 1 mg q 8h - cont reglana nd benadryl - cont depakote and topiramate - cont IVF, change ot nS - dilaudid PRN - dc toradol tonight ( day 3 ) - cont to hold verapamil
[2017-07-08] MEDS: KETOROLAC TROMETHAMINE 30 MG/1 ML VIAL IVPB PRN (21:38)
[2017-07-08] MEDS: AMITRIPTYLINE HCL 25 MG TABLET (FP) PO SCH (21:38)
[2017-07-09] MEDS: METOCLOPRAMIDE HCL INJECTION 10 MG/2 ML VIAL IVPB SCH ×3 (01:40→18:28)
[2017-07-09] MEDS: DIHYDROERGOTAMINE MESYLATE 1 MG/1 ML AMPULE IVPB SCH ×3 (02:17→18:59)
[2017-07-09] MEDS ORDERED: PT OWN MED DRAWER 7, Y5N ONE ×3 (06:26→19:55)
[2017-07-09] MEDS: VALPROATE SODIUM 500 MG/5 ML VIAL IVPB SCH ×3 (06:32→21:36)
[2017-07-09] MEDS ORDERED: ONDANSETRON 4 MG/2 ML VIAL IVPUSH PRN (08:30)
[2017-07-09 09:04] LABS: ALBUMIN 3.3 g/dl (3.4-5.0); ANION GAP 8 (8-16); CALCIUM 8.3 mg/dL (8.5-10.1); CO2 22 mmol/L (21-32); CREATININE 0.6 mg/dL (0.55-1.02); GLUCOSE,RANDOM 80 mg/dL (74-106); SGOT/AST 24 U/L (15-37); SGPT/ALT 50 U/L (12-78)
[2017-07-09 09:06] LABS: ALK PHOS 68 U/L (45-117); BILIRUBIN,TOTAL 0.4 mg/dL (0.2-1.0); TOT PROT 6.7 g/dl (6.4-8.2)
[2017-07-09] MEDS: HYDROmorphone HCL CARPU-JECT 1 MG/1 ML DISP.SYRIN IVPB PRN ×3 (09:06→23:17)
[2017-07-09] MEDS: ENOXAPARIN NA (PORCINE) 40 MG/0.4 ML DISP.SYRIN SQ SCH (11:16)
[2017-07-09] MEDS: TOPIRAMATE 100 MG TABLET PO SCH ×2 (12:00→21:36)
--- NOTE | 2017-07-09 13:09 | EKG ---
Test Reason : Blood Pressure : / mmHG Vent. Rate : 067 BPM Atrial Rate : 067 BPM P-R Int : 174 ms QRS Dur : 094 ms QT Int : 410 ms P-R-T Axes : 059 062 064 degrees QTc Int : 433 ms NORMAL SINUS RHYTHM rSR' V1-V2 WHEN COMPARED WITH ECG OF 07-JUL-2017 09:22, NO SIGNIFICANT CHANGE WAS FOUND Confirmed by ARNULFO FRIEDMAN MD ([id number]) on 07/09/2017 1:08:53 PM Referred By: Jocelyn LYLES Confirmed By:ARNULFO FRIEDMAN MD
--- NOTE | 2017-07-09 14:58 | PN ---
Physical Exam: SUBJECTIVE: Patient seen and examined. No acute events overnight. Pt states that pain is same as yesterday, only receiving relief for 2 hours after pain meds are given. She also endorses increased nausea without emesis. OBJECTIVE: Vital Signs Period Temp Pulse Resp BP Sys/Ames Pulse Ox Last 24 Hr 97.2 F-98.4 F 58-73 18-20 123-157/74-103 97 GENERAL: The patient is awake, alert, and fully oriented, in distress. HEAD: Normal with no signs of trauma. EYES: PERRL, extraocular movements intact, sclera anicteric, conjunctiva clear. No ptosis. ENT: Ears normal, nares patent, oropharynx clear without exudates, moist mucous membranes. NECK: Trachea midline, full range of motion, supple. LUNGS: Breath sounds equal, clear to auscultation bilaterally, no wheezes, no crackles, no accessory muscle use. HEART: Regular rate and rhythm, S1, S2 without murmur, rub or gallop. ABDOMEN: Soft, nontender, nondistended, normoactive bowel sounds, no guarding, no rebound, no hepatosplenomegaly, no masses. EXTREMITIES: 2+ pulses, warm, well-perfused, no edema. NEUROLOGICAL: Cranial nerves II through XII grossly intact. Normal speech, gait not observed. PSYCH: distressed SKIN: Warm, dry, normal turgor, no rashes or lesions noted Laboratory Results - last 24 hr 07/09/17 07:00 Sodium 141 Potassium 4.2 Chloride 111 H Carbon Dioxide 22 D Anion Gap 8 BUN 11 D Creatinine 0.6 Creat Clearance w eGFR > 60 Random Glucose 80 Calcium 8.3 L Total Bilirubin 0.4 D AST 24 D ALT 50 Alkaline Phosphatase 68 Total Protein 6.7 Albumin 3.3 L Active Medications Generic Name Dose Route Start Last Admin Trade Name Freq PRN Reason Stop Dose Admin Amitriptyline HCl 50 mg 07/07/17 22:00 07/08/17 21:38 Elavil - PO 50 mg HS EULALIA Administration Dihydroergotamine Mesylate 1 mg 07/07/17 18:00 07/09/17 12:00 D.H.E. - IVPB 1 mg Q8H-IV EULALIA Administration Diphenhydramine HCl 25 mg 07/08/17 17:30 07/09/17 10:22 Benadryl Injection - IVPUSH 25 mg Q8H EULALIA Administration Enoxaparin Sodium 40 mg 07/06/17 10:00 07/09/17 11:16 Lovenox - SQ 40 mg DAILY EULALIA Administration Hydromorphone HCl 0.5 mg 07/08/17 13:14 07/09/17 14:34 Dilaudid Injection - IVPB 0.5 mg Q4H PRN Administration PAIN Sodium Chloride 1,000 mls @ 50 mls/hr 07/08/17 12:45 07/08/17 14:26 Normal Saline - IV 07/11/17 12:36 50 mls/hr ASDIR EULALIA Administration Metoclopramide HCl 10 mg 07/08/17 01:40 07/09/17 11:10 Reglan Injection - IVPB 10 mg Q8H EULALIA Administration Ondansetron HCl 4 mg 07/09/17 08:30 Zofran Injection IVPUSH 07/09/17 20:31 Q4H PRN NAUSEA AND/OR VOMITING Topiramate 100 mg 07/06/17 22:00 07/09/17 12:00 Topamax - PO 100 mg BID EULALIA Administration Valproate Sodium 500 mg 07/07/17 22:00 07/09/17 06:32 Depacon Injection - IVPB 500 mg TID EULALIA Administration ASSESSMENT/PLAN: 36F w/ hx of chronic migraines, seizure disorder, and HTN admitted for status migrainosus, being treated with IV DHE (day 5). #Acute Migraine -Neuro on board- Dr. Berumen (closely followed by him as outpt, pt receives botox) -continue DHE 1mg IV q8h, benadryl 25mg IV q8h, valproate 500mg TID, dilaudid 0.5mg IM q4h PRN, amitripyline 50mg qd, reglan 10mg IV q8h -started zofran q4h PRN for nausea, repeat EKG shows QTc of 433. -monitor response #Seizure Disorder -continue topiramate 100mg BID #HTN -BPs today 136-160/75-100, HRs 65-75 -verapamil held due to interaction with DHE -continue monitoring #FEN/PPx -NS at 50 -wnl in last BMP -sodium controlled diet -no GI ppx indicated -lovenox 40 #Dispo -home pending adequate treatment response Jeremías Fink, MD PGY1 Visit type - Emergency Visit Emergency Visit: Yes ED Registration Date: 07/07/17 Care time: The patient presented to the Emergency Department on the above date and was hospitalized for further evaluation of their emergent condition. - New Patient This patient is new to me today: No - Critical Care Critical Care patient: No
--- NOTE | 2017-07-09 15:45 | PN ---
Teaching Attending Note Name of Resident: Jeremías Dumas ATTENDING PHYSICIAN STATEMENT I saw and evaluated the patient. I reviewed the resident's note and discussed the case with the resident. I agree with the resident's findings and plan as documented. SUBJECTIVE: no fever or chills . cont to have 9/10 JOYA . photophobia. NO weakness, or numbness OBJECTIVE: NAD CV: RRR Lungs: CTAB Ext : no edema Neuro : EOMI, round equal reactive pupils . strength 5/5 in upper and lower extremities , reflexes 2+ biceps , 1+ knee jerk b/l . no facial droop. NL sensation ASSESSMENT AND PLAN: 36 y/o lady wt h/o occipital neuralgia and migraines who presented [facility] JOYA 1- Status Migrainosus : - Cont DHE 1 mg q 8h - cont reglan and benadryl 30 min prior to DHE dose - cont depakote and topiramate - cont IVF - dilaudid PRN - received 3 days of toradol - cont to hold verapamil due to interaction with DHE - Ehrn ready for DC , need to ask Neuro if depakote to be continued at DC [facility], still with intractable JOYA
--- NOTE | 2017-07-09 20:48 | PN ---
Progress Note, Physician Chief Complaint: Status Migraine History of Present Illness: 36 year old female, followed by my associate, Dr. 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 Patient reports the migraine pain is non radiating pain localized in her left side of the head behind her left eye. Patient reports pain had been 10/10 in intensity. She reports going to [facility] ED night prior to admission for migraine and was given tylenol and ketorolac for pain with no relief. Patient reports intermittent episodes of nausea secondary to migraine headache. HX of occipital neuralgia and receives RF ablation for this at [facility]. Feels these JOYA are more related to migraines. takes occ. Dilaudid when JOYA overpowering; no hx of addiction tho this. receives Botox as outpt. HX of seizures-stable. Since admission she has been doing better, with improvement after medication, though still regresses towards end of dose. She has just reached 1 mg DHE yesterday. Has had good results with DHE, Depacon and Decadron in the past. - Current Medication List Current Medications: Active Medications Amitriptyline HCl (Elavil -) 50 mg PO HS EULALIA Last Admin: 07/08/17 21:38 Dose: 50 mg Dihydroergotamine Mesylate (D.H.E. -) 1 mg IVPB Q8H-IV EULALIA Last Admin: 07/09/17 18:59 Dose: 1 mg Diphenhydramine HCl (Benadryl Injection -) 25 mg IVPUSH Q8H EULALIA Last Admin: 07/09/17 18:20 Dose: 25 mg Enoxaparin Sodium (Lovenox -) 40 mg SQ DAILY EULALIA Last Admin: 07/09/17 11:16 Dose: 40 mg Hydromorphone HCl (Dilaudid Injection -) 0.5 mg IVPB Q4H PRN PRN Reason: PAIN Last Admin: 07/09/17 14:34 Dose: 0.5 mg Sodium Chloride (Normal Saline -) 1,000 mls @ 50 mls/hr IV ASDIR EULALIA Stop: 07/11/17 12:36 Last Admin: 07/08/17 14:26 Dose: 50 mls/hr Metoclopramide HCl (Reglan Injection -) 10 mg IVPB Q8H [facility] Last Admin: 07/09/17 18:28 Dose: 10 mg Topiramate (Topamax -) 100 mg PO BID [facility] Last Admin: 07/09/17 12:00 Dose: 100 mg Valproate Sodium (Depacon Injection -) 500 mg IVPB TID [facility] Last Admin: 07/09/17 15:10 Dose: 500 mg - Objective Vital Signs: Vital Signs Temperature 98.0 F 07/09/17 18:05 Pulse Rate 89 07/09/17 18:05 Respiratory Rate 20 07/09/17 18:05 Blood Pressure 123/70 07/09/17 18:05 O2 Sat by Pulse Oximetry (%) 97 07/09/17 09:00 Neurological: Yes: WNL Labs: CBC, BMP 07/09/17 07:00 Assessment/Plan Status Migraine getting better with DHE and Depacon. We'll add Decadron 4 q 6 hours. Suspect she'll just need a little more time. Ideally should discharge home when headache free for 24 hours, though sometimes can get close to that point and use migrainal to finish the job.
[2017-07-09] MEDS: DEXAMETHASONE SOD PHOSPHATE 4 MG/1 ML VIAL IVPB SCH (21:35)
[2017-07-09] MEDS: SODIUM CHLORIDE 1,000 ML IV SCH (21:36)
[2017-07-09] MEDS: AMITRIPTYLINE HCL 25 MG TABLET (FP) PO SCH (21:36)
[2017-07-10] MEDS: METOCLOPRAMIDE HCL INJECTION 10 MG/2 ML VIAL IVPB SCH ×3 (01:33→17:48)
[2017-07-10] MEDS: DIHYDROERGOTAMINE MESYLATE 1 MG/1 ML AMPULE IVPB SCH (01:37)
[2017-07-10] MEDS: DEXAMETHASONE SOD PHOSPHATE 4 MG/1 ML VIAL IVPB SCH ×4 (03:28→21:19)
[2017-07-10] MEDS: VALPROATE SODIUM 500 MG/5 ML VIAL IVPB SCH ×3 (05:59→22:11)
--- NOTE | 2017-07-10 08:29 | PN ---
Teaching Attending Note Name of Resident: Jeremías Dumas ATTENDING PHYSICIAN STATEMENT I saw and evaluated the patient. I reviewed the resident's note and discussed the case with the resident. I agree with the resident's findings and plan as documented. SUBJECTIVE: Continues to have severe headache. OBJECTIVE: Vital Signs Temperature 98.6 F 07/10/17 08:24 Pulse Rate 90 07/10/17 08:24 Respiratory Rate 18 07/10/17 08:24 Blood Pressure 138/79 07/10/17 08:24 O2 Sat by Pulse Oximetry (%) 97 07/09/17 09:00 CBCD WBC 8.5 K/mm3 (4.0-10.0) 07/07/17 07:00 RBC 4.64 M/mm3 (3.60-5.2) 07/07/17 07:00 Hgb 14.9 GM/dL (10.7-15.3) 07/07/17 07:00 Hct 43.2 % (32.4-45.2) 07/07/17 07:00 MCV 93.1 fl (80-96) 07/07/17 07:00 MCHC 34.6 g/dl (32.0-36.0) 07/07/17 07:00 RDW 12.8 % (11.6-15.6) 07/07/17 07:00 Plt Count 226 K/MM3 (134-434) 07/07/17 07:00 MPV 8.9 fl (7.5-11.1) 07/07/17 07:00 CMP Sodium 141 mmol/L (136-145) 07/09/17 07:00 Potassium 4.2 mmol/L (3.5-5.1) 07/09/17 07:00 Chloride 111 mmol/L (98-107) H 07/09/17 07:00 Carbon Dioxide 22 mmol/L (21-32) D 07/09/17 07:00 Anion Gap 8 (8-16) 07/09/17 07:00 BUN 11 mg/dL (7-18) D 07/09/17 07:00 Creatinine 0.6 mg/dL (0.55-1.02) 07/09/17 07:00 Creat Clearance w eGFR > 60 (>60) 07/09/17 07:00 Random Glucose 80 mg/dL (74-106) 07/09/17 07:00 Calcium 8.3 mg/dL (8.5-10.1) L 07/09/17 07:00 Total Bilirubin 0.4 mg/dL (0.2-1.0) D 07/09/17 07:00 AST 24 U/L (15-37) D 07/09/17 07:00 ALT 50 U/L (12-78) 07/09/17 07:00 Alkaline Phosphatase 68 U/L (45-117) 07/09/17 07:00 Total Protein 6.7 g/dl (6.4-8.2) 07/09/17 07:00 Albumin 3.3 g/dl (3.4-5.0) L 07/09/17 07:00 Current Medications Generic Name Dose Route Start Last Admin Trade Name Freq PRN Reason Stop Dose Admin Amitriptyline HCl 50 mg 07/07/17 22:00 07/09/17 21:36 Elavil - PO 50 mg HS EULALIA Administration Dexamethasone Sodium Phosphate 4 mg 07/09/17 21:00 07/10/17 03:28 Decadron Injection - IVPB 4 mg Q6H-IV EULALIA Administration Dihydroergotamine Mesylate 1 mg 07/07/17 18:00 07/10/17 01:37 D.H.E. - IVPB 1 mg Q8H-IV EULALIA Administration Diphenhydramine HCl 25 mg 07/08/17 17:30 07/10/17 01:26 Benadryl Injection - IVPUSH 25 mg Q8H EULALIA Administration Enoxaparin Sodium 40 mg 07/06/17 10:00 07/09/17 11:16 Lovenox - SQ 40 mg DAILY EULALIA Administration Hydromorphone HCl 0.5 mg 07/08/17 13:14 07/09/17 23:17 Dilaudid Injection - IVPB 0.5 mg Q4H PRN Administration PAIN Sodium Chloride 1,000 mls @ 50 mls/hr 07/08/17 12:45 07/09/17 21:36 Normal Saline - IV 07/11/17 12:36 50 mls/hr ASDIR EULALIA Administration Metoclopramide HCl 10 mg 07/08/17 01:40 07/10/17 01:33 Reglan Injection - IVPB 10 mg Q8H EULALIA Administration Topiramate 100 mg 07/06/17 22:00 07/09/17 21:36 Topamax - PO 100 mg BID EULALIA Administration Valproate Sodium 500 mg 07/07/17 22:00 07/10/17 05:59 Depacon Injection - IVPB 500 mg TID EULALIA Administration Home Medications Medication Instructions Recorded Amitriptyline HCl [Elavil -] 50 mg PO HS 07/06/17 Topiramate [Topamax] 100 mg PO BID 07/06/17 Verapamil HCl [Verapamil ER Pm] 120 mg PO DAILY 07/06/17 PE: per resident's note ASSESSMENT AND PLAN: 36 y/o lady wt h/o occipital neuralgia and migraines who presented [facility] JOYA # Status Migrainosus : multiple pain medications without any relief , on DHE 1 mg q 8h Iv, as per neuro continue , cont reglan, depakote and topiramate dilaudid PRN, s/p 3 days of toradol , cont to hold verapamil due to interaction with DHE. On decadron as well. DVT Px: Lovenox
[2017-07-10] MEDS: HYDROmorphone HCL CARPU-JECT 1 MG/1 ML DISP.SYRIN IVPB PRN ×3 (08:46→20:50)
--- NOTE | 2017-07-10 09:11 | PN ---
Progress Note (short form) - Note Progress Note: 36 year old female, pt known to me, with a significant past medical history of chronic migraine headache who presents to the ED with complaints of migraine that began 1 week ago with no signs of relief. Patient reports driving home with 1 week ago when migraine began and has not subsided. Patient reports the migraine pain is non radiating pain localized in her left side of the head behind her left eye. Patient reports pain to be a 10/10 in intensity. She reports going to [facility] ED yesterday night for migraine and was given tylenol and toroidal for pain with no relief. Patient reports intermittent episodes of nausea secondary to migraine headache. HX of occipital neuralgia and receives RF ablation for this at [facility]. Feels these JOYA are more related to migraines. takes occ. Dilaudid when JOYA overpowering; no hx of addiction tho this. receives Botox as outpt. HX of seizures-stable. 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 - Past Surgical History Past Surgical History: Yes: Hysterectomy - Alcohol/Substance Use Hx Alcohol Use: No History of Substance Use: reports: None - Smoking History Smoking history: Never smoked Home Medications - Allergies Allergies/Adverse Reactions: Allergies Allergy/AdvReac Type Severity Reaction Status Date / Time No Known Allergies Allergy Verified 07/05/17 20:33 - Home Medications Home Medications: Ambulatory Orders Amitriptyline HCl [Elavil -] 50 mg PO HS 07/06/17 Topiramate [Topamax] 100 mg PO BID 07/06/17 Verapamil HCl [Verapamil ER Pm] 120 mg PO DAILY 07/06/17 Physical Exam-Neuro Vital Signs: Vital Signs Temperature 98.6 F 07/10/17 08:24 Pulse Rate 90 07/10/17 08:24 Respiratory Rate 18 07/10/17 08:24 Blood Pressure 138/79 07/10/17 08:24 O2 Sat by Pulse Oximetry (%) 97 07/09/17 09:00 Constitutional: Yes: Well Nourished Neck: Yes: WNL Cardiovascular: Yes: Regular Rate and Rhythm Respiratory: Yes: CTA Bilaterally Labs: CBC,CMP WBC 8.5 K/mm3 (4.0-10.0) 07/07/17 07:00 RBC 4.64 M/mm3 (3.60-5.2) 07/07/17 07:00 Hgb 14.9 GM/dL (10.7-15.3) 07/07/17 07:00 Hct 43.2 % (32.4-45.2) 07/07/17 07:00 MCV 93.1 fl (80-96) 07/07/17 07:00 MCH 32.2 pg (25.7-33.7) 07/07/17 07:00 MCHC 34.6 g/dl (32.0-36.0) 07/07/17 07:00 RDW 12.8 % (11.6-15.6) 07/07/17 07:00 Plt Count 226 K/MM3 (134-434) 07/07/17 07:00 MPV 8.9 fl (7.5-11.1) 07/07/17 07:00 Neutrophils % 69.2 % (42.8-82.8) D 07/07/17 07:00 Lymphocytes % 20.6 % (8-40) D 07/07/17 07:00 Monocytes % 6.7 % (3.8-10.2) 07/07/17 07:00 Eosinophils % 3.2 % (0-4.5) 07/07/17 07:00 Basophils % 0.3 % (0-2.0) 07/07/17 07:00 Sodium 141 mmol/L (136-145) 07/09/17 07:00 Potassium 4.2 mmol/L (3.5-5.1) 07/09/17 07:00 Chloride 111 mmol/L (98-107) H 07/09/17 07:00 Carbon Dioxide 22 mmol/L (21-32) D 07/09/17 07:00 Anion Gap 8 (8-16) 07/09/17 07:00 BUN 11 mg/dL (7-18) D 07/09/17 07:00 Creatinine 0.6 mg/dL (0.55-1.02) 07/09/17 07:00 Creat Clearance w eGFR > 60 (>60) 07/09/17 07:00 Random Glucose 80 mg/dL (74-106) 07/09/17 07:00 Calcium 8.3 mg/dL (8.5-10.1) L 07/09/17 07:00 Magnesium 2.4 mg/dL (1.8-2.4) D 07/07/17 07:00 Total Bilirubin 0.4 mg/dL (0.2-1.0) D 07/09/17 07:00 AST 24 U/L (15-37) D 07/09/17 07:00 ALT 50 U/L (12-78) 07/09/17 07:00 Alkaline Phosphatase 68 U/L (45-117) 07/09/17 07:00 Total Protein 6.7 g/dl (6.4-8.2) 07/09/17 07:00 Albumin 3.3 g/dl (3.4-5.0) L 07/09/17 07:00 - Neuro Exam Level Of Consciousness: Yes: Alert, Oriented to Person Eyes: Yes: PERRLA Cranial Nerves II-XII Intact: Yes Babinski: Absent Response to light touch: Normal Response to pain prick: Normal Motor Strength: 5/5: Left Arm, Right Arm, Left Leg, Right Leg Gait: Normal Problem List - Problems (1) Status migrainosus Code(s): G43.901 - MIGRAINE, UNSP, NOT INTRACTABLE, WITH STATUS MIGRAINOSUS Assessment/Plan Status migrainousis JOYA x one week, intractable; receives BOTOX as outpt, no response to steroids, dilaudid, triptans, and recent Er admission for JOYA; started on completed DHE 1mg TID cont depakon 500TID, dilaudid PRN, decadron, add magensium sulfate ideally needs to have JOYA < 50% pain VAs from when she came Dr Berumen Problem List - Problems (1) Status migrainosus Code(s): G43.901 - MIGRAINE, UNSP, NOT INTRACTABLE, WITH STATUS MIGRAINOSUS
[2017-07-10] MEDS ORDERED: MAGNESIUM SULF 50% (8.12 MEQ/2 ML-1 GM VIAL) IVPB ONE (09:45)
[2017-07-10] MEDS: TOPIRAMATE 100 MG TABLET PO SCH ×2 (10:46→21:31)
[2017-07-10] MEDS: ENOXAPARIN NA (PORCINE) 40 MG/0.4 ML DISP.SYRIN SQ SCH (10:46)
[2017-07-10] MEDS ORDERED: ONDANSETRON 4 MG/2 ML VIAL IVPUSH PRN (13:51)
[2017-07-10] MEDS ORDERED: PT OWN MED DRAWER 7, Y5N ONE ×2 (14:54→18:07)
[2017-07-10] MEDS: SODIUM CHLORIDE 1,000 ML IV SCH (15:15)
--- NOTE | 2017-07-10 16:33 | PN ---
Physical Exam: SUBJECTIVE: Patient seen and examined. No acute events overnight. Pt reports that pain is same as yesterday without any improvement. Nausea is still significant causing her to have no appetite. OBJECTIVE: Vital Signs Period Temp Pulse Resp BP Sys/Ames Pulse Ox Last 24 Hr 98.0 F-98.7 F 69-90 18-20 121-138/70-82 97 GENERAL: The patient is awake, alert, and fully oriented, in acute distress. HEAD: Normal with no signs of trauma. EYES: PERRL, extraocular movements intact, sclera anicteric, conjunctiva clear. No ptosis. ENT: Ears normal, nares patent, oropharynx clear without exudates, moist mucous membranes. NECK: Trachea midline, full range of motion, supple. LUNGS: Breath sounds equal, clear to auscultation bilaterally, no wheezes, no crackles, no accessory muscle use. HEART: Regular rate and rhythm, S1, S2 without murmur, rub or gallop. ABDOMEN: Soft, nontender, nondistended, normoactive bowel sounds, no guarding, no rebound, no hepatosplenomegaly, no masses. EXTREMITIES: 2+ pulses, warm, well-perfused, no edema. NEUROLOGICAL: Cranial nerves II through XII grossly intact. Normal speech, gait not observed. PSYCH: Normal mood, normal affect. SKIN: Warm, dry, normal turgor, no rashes or lesions noted Active Medications Generic Name Dose Route Start Last Admin Trade Name Freq PRN Reason Stop Dose Admin Amitriptyline HCl 50 mg 07/07/17 22:00 07/09/17 21:36 Elavil - PO 50 mg HS EULALIA Administration Dexamethasone Sodium Phosphate 4 mg 07/09/17 21:00 07/10/17 15:15 Decadron Injection - IVPB 4 mg Q6H-IV EULALIA Administration Diphenhydramine HCl 25 mg 07/08/17 17:30 07/10/17 09:29 Benadryl Injection - IVPUSH 25 mg Q8H EULALIA Administration Enoxaparin Sodium 40 mg 07/06/17 10:00 07/10/17 10:46 Lovenox - SQ 40 mg DAILY EULALIA Administration Hydromorphone HCl 0.5 mg 07/08/17 13:14 07/10/17 15:02 Dilaudid Injection - IVPB 0.5 mg Q4H PRN Administration PAIN Sodium Chloride 1,000 mls @ 50 mls/hr 07/08/17 12:45 07/10/17 15:15 Normal Saline - IV 07/11/17 12:36 50 mls/hr ASDIR EULALIA Administration Metoclopramide HCl 10 mg 07/08/17 01:40 07/10/17 09:30 Reglan Injection - IVPB 10 mg Q8H EULALIA Administration Ondansetron HCl 4 mg 07/10/17 13:51 Zofran Injection IVPUSH 07/11/17 01:52 Q4H PRN NAUSEA AND/OR VOMITING Topiramate 100 mg 07/06/17 22:00 07/10/17 10:46 Topamax - PO 100 mg BID EULALIA Administration Valproate Sodium 500 mg 07/07/17 22:00 07/10/17 15:02 Depacon Injection - IVPB 500 mg TID EULALIA Administration ASSESSMENT/PLAN: 36F w/ hx of chronic migraines, seizure disorder, and HTN admitted for status migrainosus, finished 5 day course of IV DHE, now being treated with valproate, decadron, and magnesium with minimal improvement in symptoms. #Acute Migraine -Neuro on board- Dr. Berumen (closely followed by him as outpt, pt receives botox), appreciated recs -finished 5 day course of DHE -continue benadryl 25mg IV q8h, valproate 500mg TID, dilaudid 0.5mg IM q4h PRN, amitripyline 50mg qd, reglan 10mg IV q8h, decadron 4mg IV q8h, and zofran q4h PRN -monitor response #Seizure Disorder -continue topiramate 100mg BID #HTN -BPs today 120-135/70-80, HRs 70-90 -verapamil held due to interaction with DHE -continue monitoring #FEN/PPx -NS at 50 -wnl in last BMP -sodium controlled diet -no GI ppx indicated -lovenox 40 #Dispo -home pending adequate treatment response Jeremías Dumas MD PGY1 Visit type - Emergency Visit Emergency Visit: Yes ED Registration Date: 07/07/17 Care time: The patient presented to the Emergency Department on the above date and was hospitalized for further evaluation of their emergent condition. - New Patient This patient is new to me today: No - Critical Care Critical Care patient: No
[2017-07-10] MEDS: AMITRIPTYLINE HCL 25 MG TABLET (FP) PO SCH (21:31)
[2017-07-10] MEDS ORDERED: ONDANSETRON 4 MG/2 ML VIAL IVPB PRN (23:08)
[2017-07-11] MEDS: METOCLOPRAMIDE HCL INJECTION 10 MG/2 ML VIAL IVPB SCH ×3 (01:45→21:07)
[2017-07-11] MEDS: DEXAMETHASONE SOD PHOSPHATE 4 MG/1 ML VIAL IVPB SCH ×3 (03:04→16:33)
[2017-07-11] MEDS: VALPROATE SODIUM 500 MG/5 ML VIAL IVPB SCH ×3 (06:01→23:40)
--- NOTE | 2017-07-11 09:03 | PN ---
Progress Note (short form) - Note Progress Note: 6 year old female, pt known to me, with a significant past medical history of chronic migraine headache who presents to the ED with complaints of migraine that began 1 week ago with no signs of relief. Patient reports driving home with 1 week ago when migraine began and has not subsided. Patient reports the migraine pain is non radiating pain localized in her left side of the head behind her left eye. Patient reports pain to be a 10/10 in intensity. She reports going to [facility] ED yesterday night for migraine and was given tylenol and toroidal for pain with no relief. Patient reports intermittent episodes of nausea secondary to migraine headache. HX of occipital neuralgia and receives RF ablation for this at [facility]. Feels these JOYA are more related to migraines. takes occ. Dilaudid when JOYA overpowering; no hx of addiction tho this. receives Botox as outpt. HX of seizures-stable. 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 - Past Surgical History Past Surgical History: Yes: Hysterectomy - Alcohol/Substance Use Hx Alcohol Use: No History of Substance Use: reports: None - Smoking History Smoking history: Never smoked Home Medications - Allergies Allergies/Adverse Reactions: Allergies Allergy/AdvReac Type Severity Reaction Status Date / Time No Known Allergies Allergy Verified 07/05/17 20:33 - Home Medications Home Medications: Ambulatory Orders Amitriptyline HCl [Elavil -] 50 mg PO HS 07/06/17 Topiramate [Topamax] 100 mg PO BID 07/06/17 Verapamil HCl [Verapamil ER Pm] 120 mg PO DAILY 07/06/17 Physical Exam-Neuro Vital Signs: Vital Signs Temperature 98.4 F 07/11/17 03:00 Pulse Rate 77 07/11/17 03:00 Respiratory Rate 18 07/11/17 03:00 Blood Pressure 132/79 07/11/17 03:00 O2 Sat by Pulse Oximetry (%) 98 07/10/17 21:00 Constitutional: Yes: Well Nourished Neck: Yes: WNL Cardiovascular: Yes: Regular Rate and Rhythm Respiratory: Yes: CTA Bilaterally Labs: CBC,CMP WBC 8.5 K/mm3 (4.0-10.0) 07/07/17 07:00 RBC 4.64 M/mm3 (3.60-5.2) 07/07/17 07:00 Hgb 14.9 GM/dL (10.7-15.3) 07/07/17 07:00 Hct 43.2 % (32.4-45.2) 07/07/17 07:00 MCV 93.1 fl (80-96) 07/07/17 07:00 MCH 32.2 pg (25.7-33.7) 07/07/17 07:00 MCHC 34.6 g/dl (32.0-36.0) 07/07/17 07:00 RDW 12.8 % (11.6-15.6) 07/07/17 07:00 Plt Count 226 K/MM3 (134-434) 07/07/17 07:00 MPV 8.9 fl (7.5-11.1) 07/07/17 07:00 Neutrophils % 69.2 % (42.8-82.8) D 07/07/17 07:00 Lymphocytes % 20.6 % (8-40) D 07/07/17 07:00 Monocytes % 6.7 % (3.8-10.2) 07/07/17 07:00 Eosinophils % 3.2 % (0-4.5) 07/07/17 07:00 Basophils % 0.3 % (0-2.0) 07/07/17 07:00 Sodium 141 mmol/L (136-145) 07/09/17 07:00 Potassium 4.2 mmol/L (3.5-5.1) 07/09/17 07:00 Chloride 111 mmol/L (98-107) H 07/09/17 07:00 Carbon Dioxide 22 mmol/L (21-32) D 07/09/17 07:00 Anion Gap 8 (8-16) 07/09/17 07:00 BUN 11 mg/dL (7-18) D 07/09/17 07:00 Creatinine 0.6 mg/dL (0.55-1.02) 07/09/17 07:00 Creat Clearance w eGFR > 60 (>60) 07/09/17 07:00 Random Glucose 80 mg/dL (74-106) 07/09/17 07:00 Calcium 8.3 mg/dL (8.5-10.1) L 07/09/17 07:00 Magnesium 2.4 mg/dL (1.8-2.4) D 07/07/17 07:00 Total Bilirubin 0.4 mg/dL (0.2-1.0) D 07/09/17 07:00 AST 24 U/L (15-37) D 07/09/17 07:00 ALT 50 U/L (12-78) 07/09/17 07:00 Alkaline Phosphatase 68 U/L (45-117) 07/09/17 07:00 Total Protein 6.7 g/dl (6.4-8.2) 07/09/17 07:00 Albumin 3.3 g/dl (3.4-5.0) L 07/09/17 07:00 - Neuro Exam Level Of Consciousness: Yes: Alert, Oriented to Person Eyes: Yes: PERRLA Cranial Nerves II-XII Intact: Yes Babinski: Absent Response to light touch: Normal Response to pain prick: Normal Motor Strength: 5/5: Left Arm, Right Arm, Left Leg, Right Leg Gait: Normal Problem List - Problems (1) Status migrainosus Code(s): G43.901 - MIGRAINE, UNSP, NOT INTRACTABLE, WITH STATUS MIGRAINOSUS Assessment/Plan Status migrainousis JOYA x one week, intractable; receives BOTOX as outpt, no response to steroids, dilaudid, triptans, and recent Er admission for JOYA; started on completed DHE 1mg TID x 3 days though JOYA continue will inc dilaudud to 1mg Q8, add on DHE again for one day, cont becki and fadia Berumen [id number] Problem List - Problems (1) Status migrainosus Code(s): G43.901 - MIGRAINE, UNSP, NOT INTRACTABLE, WITH STATUS MIGRAINOSUS
[2017-07-11] MEDS: HYDROmorphone HCL CARPU-JECT 1 MG/1 ML DISP.SYRIN IVPB PRN ×2 (09:15→20:57)
[2017-07-11] MEDS ORDERED: METOCLOPRAMIDE HCL INJECTION 10 MG/2 ML VIAL IVPB PRN (09:29)
[2017-07-11] MEDS ORDERED: PT OWN MED DRAWER 7, Y5N ONE ×2 (09:41→14:17)
[2017-07-11] MEDS ORDERED: ONDANSETRON 4 MG/2 ML VIAL IVPB PRN (09:41)
[2017-07-11] MEDS: HYDROmorphone HCL CARPU-JECT 1 MG/1 ML DISP.SYRIN IVPB ONE ×2 (10:36→11:27)
[2017-07-11] MEDS: ENOXAPARIN NA (PORCINE) 40 MG/0.4 ML DISP.SYRIN SQ SCH (10:39)
[2017-07-11] MEDS: TOPIRAMATE 100 MG TABLET PO SCH ×2 (10:39→21:49)
[2017-07-11] MEDS: DIHYDROERGOTAMINE MESYLATE 1 MG/1 ML AMPULE IVPB SCH ×2 (14:49→22:33)
--- NOTE | 2017-07-11 15:45 | PN ---
Physical Exam: SUBJECTIVE: Patient seen and examined. No change since yesterday in migraine pain, still a lot of nausea. OBJECTIVE: Vital Signs Period Temp Pulse Resp BP Sys/Ames Pulse Ox Last 24 Hr 97.2 F-98.4 F 77-92 17-20 128-137/66-79 98 GENERAL: The patient is awake, alert, and fully oriented, in significant acute distress, holding head in hands. HEAD: Normal with no signs of trauma. EYES: PERRL, extraocular movements intact, sclera anicteric, conjunctiva clear. No ptosis. ENT: Ears normal, nares patent, oropharynx clear without exudates, moist mucous membranes. NECK: Trachea midline, full range of motion, supple. LUNGS: Breath sounds equal, clear to auscultation bilaterally, no wheezes, no crackles, no accessory muscle use. HEART: Regular rate and rhythm, S1, S2 without murmur, rub or gallop. ABDOMEN: Soft, nontender, nondistended, normoactive bowel sounds, no guarding, no rebound, no hepatosplenomegaly, no masses. EXTREMITIES: 2+ pulses, warm, well-perfused, no edema. NEUROLOGICAL: Cranial nerves II through XII grossly intact. Normal speech, gait not observed. PSYCH: very distressed SKIN: Warm, dry, normal turgor, no rashes or lesions noted Active Medications Generic Name Dose Route Start Last Admin Trade Name Freq PRN Reason Stop Dose Admin Amitriptyline HCl 50 mg 07/07/17 22:00 07/10/17 21:31 Elavil - PO 50 mg HS EULALIA Administration Dexamethasone Sodium Phosphate 4 mg 07/09/17 21:00 07/11/17 11:23 Decadron Injection - IVPB 4 mg Q6H-IV EULALIA Administration Dihydroergotamine Mesylate 0.5 mg 07/11/17 12:30 07/11/17 14:49 D.H.E. - IVPB 07/12/17 04:31 0.5 mg Q8H EULALIA Administration Diphenhydramine HCl 25 mg 07/11/17 12:30 07/11/17 14:03 Benadryl Injection - IVPUSH 07/12/17 04:31 25 mg Q8H EULALIA Administration Enoxaparin Sodium 40 mg 07/06/17 10:00 07/11/17 10:39 Lovenox - SQ 40 mg DAILY EULALIA Administration Hydromorphone HCl 1 mg 07/11/17 10:26 Dilaudid Injection - IVPB 07/12/17 10:25 Q8H PRN PAIN Metoclopramide HCl 10 mg 07/11/17 12:30 07/11/17 14:10 Reglan Injection - IVPB 07/12/17 04:31 10 mg Q8H EULALIA Administration Ondansetron HCl 8 mg 07/11/17 09:41 Zofran Injection IVPB Q6H PRN NAUSEA Topiramate 100 mg 07/06/17 22:00 07/11/17 10:39 Topamax - PO 100 mg BID EULALIA Administration Valproate Sodium 500 mg 07/07/17 22:00 07/11/17 06:01 Depacon Injection - IVPB 500 mg TID EULALIA Administration ASSESSMENT/PLAN: 36F w/ hx of chronic migraines, seizure disorder, and HTN admitted for status migrainosus, finished 5 day course of IV DHE, now being treated with valproate, solumedrol, DHE, and magnesium sulfate with minimal improvement in symptoms. MRI /MRA brain ordered to determine acute etiology for migraine. #Acute Migraine -Neuro on board- Dr. Berumen (closely followed by him as outpt, pt receives botox), appreciated recs -finished 5 day course of DHE -continue benadryl 25mg IV q8h, valproate 500mg TID, dilaudid 0.5mg IM q4h PRN, amitripyline 50mg qd, reglan 10mg IV q8h, decadron 4mg IV q8h, and zofran q4h PRN -dilaudid changed to 1mg q8h, decadron changed to solumedrol 250mg q6h, and DHE 0.5mg 8h restarted -f/u MRI/MRA w/ contrast -monitor response #Nausea -significant nausea without emesis, pt has no appetite as a result -zofran added PRN #Seizure Disorder -continue topiramate 100mg BID #HTN -BPs today 120-130/65-75, HRs 80-90 -verapamil held due to interaction with DHE -continue monitoring #FEN/PPx -NS at 100 -wnl in last BMP -sodium controlled diet -no GI ppx indicated -lovenox 40 #Dispo -home pending adequate treatment response Jeremías Dumas MD PGY1 Visit type - Emergency Visit Emergency Visit: Yes ED Registration Date: 07/07/17 Care time: The patient presented to the Emergency Department on the above date and was hospitalized for further evaluation of their emergent condition. - New Patient This patient is new to me today: No - Critical Care Critical Care patient: No
--- NOTE | 2017-07-11 19:41 | PN ---
Teaching Attending Note Name of Resident: Jeremías Dumas ATTENDING PHYSICIAN STATEMENT I saw and evaluated the patient. I reviewed the resident's note and discussed the case with the resident. I agree with the resident's findings and plan as documented. SUBJECTIVE: Patient continous to ahve headache OBJECTIVE: Vital Signs Temperature 97.4 F L 07/11/17 18:05 Pulse Rate 57 L 07/11/17 18:05 Respiratory Rate 20 07/11/17 18:05 Blood Pressure 141/77 07/11/17 18:05 O2 Sat by Pulse Oximetry (%) 98 07/11/17 09:00 CBCD WBC 8.5 K/mm3 (4.0-10.0) 07/07/17 07:00 RBC 4.64 M/mm3 (3.60-5.2) 07/07/17 07:00 Hgb 14.9 GM/dL (10.7-15.3) 07/07/17 07:00 Hct 43.2 % (32.4-45.2) 07/07/17 07:00 MCV 93.1 fl (80-96) 07/07/17 07:00 MCHC 34.6 g/dl (32.0-36.0) 07/07/17 07:00 RDW 12.8 % (11.6-15.6) 07/07/17 07:00 Plt Count 226 K/MM3 (134-434) 07/07/17 07:00 MPV 8.9 fl (7.5-11.1) 07/07/17 07:00 CMP Sodium 141 mmol/L (136-145) 07/09/17 07:00 Potassium 4.2 mmol/L (3.5-5.1) 07/09/17 07:00 Chloride 111 mmol/L (98-107) H 07/09/17 07:00 Carbon Dioxide 22 mmol/L (21-32) D 07/09/17 07:00 Anion Gap 8 (8-16) 07/09/17 07:00 BUN 11 mg/dL (7-18) D 07/09/17 07:00 Creatinine 0.6 mg/dL (0.55-1.02) 07/09/17 07:00 Creat Clearance w eGFR > 60 (>60) 07/09/17 07:00 Random Glucose 80 mg/dL (74-106) 07/09/17 07:00 Calcium 8.3 mg/dL (8.5-10.1) L 07/09/17 07:00 Total Bilirubin 0.4 mg/dL (0.2-1.0) D 07/09/17 07:00 AST 24 U/L (15-37) D 07/09/17 07:00 ALT 50 U/L (12-78) 07/09/17 07:00 Alkaline Phosphatase 68 U/L (45-117) 07/09/17 07:00 Total Protein 6.7 g/dl (6.4-8.2) 07/09/17 07:00 Albumin 3.3 g/dl (3.4-5.0) L 07/09/17 07:00 Current Medications Generic Name Dose Route Start Last Admin Trade Name Freq PRN Reason Stop Dose Admin Alprazolam 0.25 mg 07/11/17 18:20 Xanax - PO 07/11/17 18:21 ONCE ONE Amitriptyline HCl 50 mg 07/07/17 22:00 07/10/17 21:31 Elavil - PO 50 mg HS EULALIA Administration Dihydroergotamine Mesylate 0.5 mg 07/11/17 12:30 07/11/17 14:49 D.H.E. - IVPB 07/12/17 04:31 0.5 mg Q8H EULALIA Administration Diphenhydramine HCl 25 mg 07/11/17 12:30 07/11/17 14:03 Benadryl Injection - IVPUSH 07/12/17 04:31 25 mg Q8H EULALIA Administration Enoxaparin Sodium 40 mg 07/06/17 10:00 07/11/17 10:39 Lovenox - SQ 40 mg DAILY EULALIA Administration Hydromorphone HCl 1 mg 07/11/17 10:26 Dilaudid Injection - IVPB 07/12/17 10:25 Q8H PRN PAIN Sodium Chloride 1,000 mls @ 100 mls/hr 07/11/17 16:30 Normal Saline - IV ASDIR EULALIA Methylprednisolone Sodium Succinate 250 mg 07/11/17 21:00 Solu-Medrol - IVPB Q6H-IV EULALIA Metoclopramide HCl 10 mg 07/11/17 12:30 07/11/17 14:10 Reglan Injection - IVPB 07/12/17 04:31 10 mg Q8H EULALIA Administration Ondansetron HCl 8 mg 07/11/17 09:41 Zofran Injection IVPB Q6H PRN NAUSEA Topiramate 100 mg 07/06/17 22:00 07/11/17 10:39 Topamax - PO 100 mg BID EULALIA Administration Valproate Sodium 500 mg 07/07/17 22:00 07/11/17 16:00 Depacon Injection - IVPB 500 mg TID EULALIA Administration Home Medications Medication Instructions Recorded Amitriptyline HCl [Elavil -] 50 mg PO HS 07/06/17 Topiramate [Topamax] 100 mg PO BID 07/06/17 Verapamil HCl [Verapamil ER Pm] 120 mg PO DAILY 07/06/17 PE: per resident's note ASSESSMENT AND PLAN: 36 y/o lady wtih h/o occipital neuralgia and migraines who presented wt JOYA # Status Migrainosus continues : multiple pain medications without any relief as per neurology to continue her meds, also given magnesium IV. Xanax , continue as per Neurologist continue , cont reglan, depakote and topiramate , dilaudid PRN, s/p 3 days of toradol , cont to hold verapamil due to interaction with DHE. On Benadryl and decadron changed to solumedrol 250mg IV q6 day #1 for total of 3 days, MRI/MRa of brain obtained to r/o any lesion or mass affecting her severe headache. As per neurologist that she gets these headache like once a year , and last hospitalization was for 13 days total DVT Px: Lovenox
[2017-07-11] MEDS: SODIUM CHLORIDE 1,000 ML IV SCH (21:01)
[2017-07-11] MEDS: AMITRIPTYLINE HCL 25 MG TABLET (FP) PO SCH (21:49)
[2017-07-11] MEDS: methylPREDNISolone NA SUCC 125 MG/2 ML VIAL IVPB SCH (21:51)
[2017-07-12] MEDS: methylPREDNISolone NA SUCC 125 MG/2 ML VIAL IVPB SCH ×4 (02:49→20:52)
[2017-07-12] MEDS: METOCLOPRAMIDE HCL INJECTION 10 MG/2 ML VIAL IVPB SCH (04:08)
[2017-07-12] MEDS: HYDROmorphone HCL CARPU-JECT 1 MG/1 ML DISP.SYRIN IVPB PRN ×4 (04:40→21:27)
[2017-07-12] MEDS: DIHYDROERGOTAMINE MESYLATE 1 MG/1 ML AMPULE IVPB SCH ×3 (04:41→22:19)
[2017-07-12] MEDS: VALPROATE SODIUM 500 MG/5 ML VIAL IVPB SCH ×3 (05:54→23:29)
[2017-07-12] MEDS: ENOXAPARIN NA (PORCINE) 40 MG/0.4 ML DISP.SYRIN SQ SCH (09:57)
[2017-07-12] MEDS: TOPIRAMATE 100 MG TABLET PO SCH ×2 (09:59→21:33)
--- NOTE | 2017-07-12 11:56 | PN ---
Progress Note, Physician Chief Complaint: Status Migraine History of Present Illness: 36 year old female, followed by my associate, Dr. Berumen, though known to me, with a significant past medical history of chronic migraine headache who presents to the ED with complaints of migraine that began 1 week [employer]ACILITY [employer] with no signs of relief. Patient reports driving home with 1 week [employer]ACILITY [employer] when migraine began and has not subsided. Patient reports the migraine pain is non radiating pain localized in her left side of the head behind her left eye. Patient reports pain had been 10/10 in intensity. She reports going to [facility] ED night prior to admission for migraine and was given tylenol and ketorolac for pain with no relief. Patient reports intermittent episodes of nausea secondary to migraine headache. HX of occipital neuralgia and receives RF ablation for this at [facility]. Feels these JOYA are more related to migraines. takes occ. Dilaudid when JOYA overpowering; no hx of addiction tho this. receives Botox as outpt. HX of seizures-stable. Since admission she has been doing better, with improvement after medication, though still regresses towards end of dose. She is doing a little better with the Dilaudid but typically requires about a 10-13 days to recover. - Current Medication List Current Medications: Active Medications Alprazolam (Xanax -) 0.25 mg PO ONCE ONE Stop: 07/11/17 18:21 Amitriptyline HCl (Elavil -) 50 mg PO HS EULALIA Last Admin: 07/11/17 21:49 Dose: 50 mg Enoxaparin Sodium (Lovenox -) 40 mg SQ DAILY EULALIA Last Admin: 07/12/17 09:57 Dose: 40 mg Hydromorphone HCl (Dilaudid Injection -) 0.5 mg IVPUSH Q3H PRN PRN Reason: PAIN Sodium Chloride (Normal Saline -) 1,000 mls @ 100 mls/hr IV ASDIR EULALIA Last Admin: 07/11/17 21:01 Dose: Not Given Famotidine/Sodium Chloride (Pepcid 20 Mg Premixed Ivpb -) 50 mls @ 100 mls/hr IVPB BID EULALIA Insulin Aspart (Novolog Vial Sliding Scale -) 1 vial SQ BID EULALIA PRN Reason: Protocol Methylprednisolone Sodium Succinate (Solu-Medrol -) 250 mg IVPB Q6H-IV EULALIA Last Admin: 07/12/17 08:54 Dose: 250 mg Ondansetron HCl (Zofran Injection) 8 mg IVPB Q6H EULALIA Topiramate (Topamax -) 100 mg PO BID EULALIA Last Admin: 07/12/17 09:59 Dose: 100 mg Valproate Sodium (Depacon Injection -) 500 mg IVPB TID EULALIA Last Admin: 07/12/17 05:54 Dose: 500 mg - Objective Vital Signs: Vital Signs Temperature 97.8 F 07/12/17 06:00 Pulse Rate 65 07/12/17 06:00 Respiratory Rate 16 07/12/17 06:00 Blood Pressure 154/94 07/12/17 06:00 O2 Sat by Pulse Oximetry (%) 98 07/11/17 22:00 Labs: CBC, BMP 07/09/17 07:00 Assessment/Plan Status Migraine getting better with DHE Dilaudid and possibly solumedrol. She typically takes 10-13 days to overcome a bout of status migraine and tends to tolerate the DHE for this length of time so we'll persevere.
[2017-07-12] MEDS ORDERED: ONDANSETRON 4 MG/2 ML VIAL IVPB SCH (12:00)
[2017-07-12] MEDS: INSULIN SLIDING SCALE (NOVOLOG) 1 VIAL SQ SCH ×2 (12:59→17:38)
[2017-07-12] MEDS: FAMOTIDINE 20 MG/50 ML IVPB 50 ML IVPB SCH (13:00)
[2017-07-12] MEDS ORDERED: DIHYDROERGOTAMINE MESYLATE 1 MG/1 ML AMPULE IVPB SCH (13:00)
[2017-07-12] MEDS: ONDANSETRON 4 MG/2 ML VIAL IVPB SCH ×2 (14:10→21:49)
--- NOTE | 2017-07-12 14:20 | PN ---
Physical Exam: SUBJECTIVE: Patient seen and examined. No acute events overnight. Pt reports that pain meds have decreased her pain for a longer duration than yesterday, but have not decreased in severity. She still endorses nausea without emesis, and she still has no appetite. OBJECTIVE: Vital Signs Period Temp Pulse Resp BP Sys/Ames Pulse Ox Last 24 Hr 97.4 F-98.3 F 57-82 16-20 137-154/77-94 98 GENERAL: The patient is awake, alert, and fully oriented, in less distress than yesterday. HEAD: Normal with no signs of trauma. EYES: PERRL, extraocular movements intact, sclera anicteric, conjunctiva clear. No ptosis. ENT: Ears normal, nares patent, oropharynx clear without exudates, moist mucous membranes. NECK: Trachea midline, full range of motion, supple. LUNGS: Breath sounds equal, clear to auscultation bilaterally, no wheezes, no crackles, no accessory muscle use. HEART: Regular rate and rhythm, S1, S2 without murmur, rub or gallop. ABDOMEN: Soft, nontender, nondistended, normoactive bowel sounds, no guarding, no rebound, no hepatosplenomegaly, no masses. EXTREMITIES: 2+ pulses, warm, well-perfused, no edema. NEUROLOGICAL: Cranial nerves II through XII grossly intact. Normal speech, gait not observed. PSYCH: distressed SKIN: Warm, dry, normal turgor, no rashes or lesions noted Laboratory Results - last 24 hr 07/12/17 12:11 POC Glucometer 133 Active Medications Generic Name Dose Route Start Last Admin Trade Name Stacey PRN Reason Stop Dose Admin Alprazolam 0.25 mg 07/11/17 18:20 Xanax - PO 07/11/17 18:21 ONCE ONE Amitriptyline HCl 50 mg 07/07/17 22:00 07/11/17 21:49 Elavil - PO 50 mg HS EULALIA Administration Dihydroergotamine Mesylate 1 mg 07/12/17 14:00 07/12/17 14:13 D.H.E. - IVPB 07/15/17 13:59 1 mg Q8H EULALIA Administration Enoxaparin Sodium 40 mg 07/06/17 10:00 07/12/17 09:57 Lovenox - SQ 40 mg DAILY EULALIA Administration Hydromorphone HCl 0.5 mg 07/12/17 11:46 07/12/17 13:03 Dilaudid Injection - IVPB 0.5 mg Q3H PRN Administration PAIN Sodium Chloride 1,000 mls @ 100 mls/hr 07/11/17 16:30 07/11/17 21:01 Normal Saline - IV Not Given ASDIR EULALIA Famotidine/Sodium Chloride 50 mls @ 100 mls/hr 07/12/17 12:00 07/12/17 13:00 Pepcid 20 Mg Premixed Ivpb - IVPB 100 mls/hr BID EULALIA Administration Insulin Aspart 1 vial 07/12/17 12:00 07/12/17 12:59 Novolog Vial Sliding Scale - SQ Not Given BIDAC EULALIA Protocol Methylprednisolone Sodium Succinate 250 mg 07/11/17 21:00 07/12/17 08:54 Solu-Medrol - IVPB 250 mg Q6H-IV EULALIA Administration Ondansetron HCl 8 mg 07/12/17 13:30 07/12/17 14:10 Zofran Injection IVPB Not Given Q8H EULALIA Topiramate 100 mg 07/06/17 22:00 07/12/17 09:59 Topamax - PO 100 mg BID EULALIA Administration Valproate Sodium 500 mg 07/07/17 22:00 07/12/17 05:54 Depacon Injection - IVPB 500 mg TID EULALIA Administration ASSESSMENT/PLAN: 36F w/ hx of chronic migraines, seizure disorder, and HTN admitted for status migrainosus, finished 5 day course of IV DHE, now being treated with valproate, solumedrol, DHE, and dilaudid with minimal improvement in symptoms. MRI/MRA brain ordered to determine acute etiology for migraine. #Acute Migraine -Neuro on board- Dr. Berumen (closely followed by him as outpt, pt receives botox), appreciated recs -finished 5 day course of DHE -continue benadryl 25mg IV q8h, valproate 500mg TID, dilaudid 0.5mg q3h PRN, amitripyline 50mg qd, solumedrol 250mg q6h, DHE 1mg IV q8h, and zofran 8mg q8h -f/u MRI/MRA w/ contrast -monitor response. Per neuro, pt's migraines can last 7-10 days. #Nausea -significant nausea without emesis, pt has no appetite as a result -zofran 8mg q8h #Seizure Disorder -continue topiramate 100mg BID #HTN -BPs today 140/75-90, HRs 55-80 -verapamil held due to interaction with DHE -continue monitoring #FEN/PPx -NS at 100 -wnl in last BMP -sodium controlled diet -no GI ppx indicated -lovenox 40 #Dispo -home pending adequate treatment response Jeremías Dumas MD PGY1 Visit type - Emergency Visit Emergency Visit: Yes ED Registration Date: 07/07/17 Care time: The patient presented to the Emergency Department on the above date and was hospitalized for further evaluation of their emergent condition. - New Patient This patient is new to me today: No - Critical Care Critical Care patient: No
[2017-07-12] MEDS ORDERED: ALPRAZolam 0.25 MG TABLET PO ONE (18:45)
[2017-07-12] MEDS: SODIUM CHLORIDE 1,000 ML IV SCH (18:54)
[2017-07-12] MEDS: AMITRIPTYLINE HCL 25 MG TABLET (FP) PO SCH (21:32)
--- NOTE | 2017-07-12 21:33 | PN ---
Teaching Attending Note Name of Resident: Jeremías Dumas ATTENDING PHYSICIAN STATEMENT I saw and evaluated the patient. I reviewed the resident's note and discussed the case with the resident. I agree with the resident's findings and plan as documented. SUBJECTIVE: Patient's headache today around 7-8 mild improvement. OBJECTIVE: Vital Signs Temperature 98.4 F 07/12/17 19:14 Pulse Rate 81 07/12/17 19:14 Respiratory Rate 18 07/12/17 19:14 Blood Pressure 158/93 07/12/17 19:14 O2 Sat by Pulse Oximetry (%) 97 07/12/17 09:00 CBCD WBC 8.5 K/mm3 (4.0-10.0) 07/07/17 07:00 RBC 4.64 M/mm3 (3.60-5.2) 07/07/17 07:00 Hgb 14.9 GM/dL (10.7-15.3) 07/07/17 07:00 Hct 43.2 % (32.4-45.2) 07/07/17 07:00 MCV 93.1 fl (80-96) 07/07/17 07:00 MCHC 34.6 g/dl (32.0-36.0) 07/07/17 07:00 RDW 12.8 % (11.6-15.6) 07/07/17 07:00 Plt Count 226 K/MM3 (134-434) 07/07/17 07:00 MPV 8.9 fl (7.5-11.1) 07/07/17 07:00 CMP Sodium 141 mmol/L (136-145) 07/09/17 07:00 Potassium 4.2 mmol/L (3.5-5.1) 07/09/17 07:00 Chloride 111 mmol/L (98-107) H 07/09/17 07:00 Carbon Dioxide 22 mmol/L (21-32) D 07/09/17 07:00 Anion Gap 8 (8-16) 07/09/17 07:00 BUN 11 mg/dL (7-18) D 07/09/17 07:00 Creatinine 0.6 mg/dL (0.55-1.02) 07/09/17 07:00 Creat Clearance w eGFR > 60 (>60) 07/09/17 07:00 Random Glucose 80 mg/dL (74-106) 07/09/17 07:00 Calcium 8.3 mg/dL (8.5-10.1) L 07/09/17 07:00 Total Bilirubin 0.4 mg/dL (0.2-1.0) D 07/09/17 07:00 AST 24 U/L (15-37) D 07/09/17 07:00 ALT 50 U/L (12-78) 07/09/17 07:00 Alkaline Phosphatase 68 U/L (45-117) 07/09/17 07:00 Total Protein 6.7 g/dl (6.4-8.2) 07/09/17 07:00 Albumin 3.3 g/dl (3.4-5.0) L 07/09/17 07:00 Current Medications Generic Name Dose Route Start Last Admin Trade Name Freq PRN Reason Stop Dose Admin Amitriptyline HCl 50 mg 07/07/17 22:00 07/12/17 21:32 Elavil - PO 50 mg HS EULALIA Administration Dihydroergotamine Mesylate 1 mg 07/12/17 14:00 07/12/17 14:13 D.H.E. - IVPB 07/15/17 13:59 1 mg Q8H EULALIA Administration Enoxaparin Sodium 40 mg 07/06/17 10:00 07/12/17 09:57 Lovenox - SQ 40 mg DAILY EULALIA Administration Hydromorphone HCl 0.5 mg 07/12/17 11:46 07/12/17 21:27 Dilaudid Injection - IVPB 0.5 mg Q3H PRN Administration PAIN Sodium Chloride 1,000 mls @ 100 mls/hr 07/11/17 16:30 07/12/17 18:54 Normal Saline - IV 100 mls/hr ASDIR EULALIA Administration Famotidine/Sodium Chloride 50 mls @ 100 mls/hr 07/12/17 12:00 07/12/17 13:00 Pepcid 20 Mg Premixed Ivpb - IVPB 100 mls/hr BID EULALIA Administration Insulin Aspart 1 vial 07/12/17 12:00 07/12/17 17:38 Novolog Vial Sliding Scale - SQ Not Given BIDAC EULALIA Protocol Methylprednisolone Sodium Succinate 250 mg 07/11/17 21:00 07/12/17 20:52 Solu-Medrol - IVPB 250 mg Q6H-IV EULALIA Administration Ondansetron HCl 8 mg 07/12/17 13:30 07/12/17 14:10 Zofran Injection IVPB Not Given Q8H EULALIA Topiramate 100 mg 07/06/17 22:00 07/12/17 21:33 Topamax - PO 100 mg BID EULALIA Administration Valproate Sodium 500 mg 07/07/17 22:00 07/12/17 15:13 Depacon Injection - IVPB 500 mg TID EULALIA Administration Home Medications Medication Instructions Recorded Amitriptyline HCl [Elavil -] 50 mg PO HS 07/06/17 Topiramate [Topamax] 100 mg PO BID 07/06/17 Verapamil HCl [Verapamil ER Pm] 120 mg PO DAILY 07/06/17 PE: per resident's note ASSESSMENT AND PLAN: 36 y/o lady wtih h/o occipital neuralgia and migraines who presented wt JOYA # Status Migrainosus continues , continue multiple pain medications and further managment per neurologist . On solumedrol 250mg IV q6 day #2 for total of 3 days, MRI/MRa of brain obtained repert reviewed , neurologist will discuss the result with the patient .As per neurologist that she gets these headache like once a year , and last hospitalization was for 13 days total. DVT Px: Lovenox
[2017-07-13] MEDS: FAMOTIDINE 20 MG/50 ML IVPB 50 ML IVPB SCH ×3 (00:47→22:28)
[2017-07-13] MEDS: methylPREDNISolone NA SUCC 125 MG/2 ML VIAL IVPB SCH ×4 (02:31→21:30)
[2017-07-13] MEDS: ONDANSETRON 4 MG/2 ML VIAL IVPB SCH ×3 (05:01→22:26)
[2017-07-13] MEDS: DIHYDROERGOTAMINE MESYLATE 1 MG/1 ML AMPULE IVPB SCH ×3 (05:43→23:00)
[2017-07-13] MEDS: VALPROATE SODIUM 500 MG/5 ML VIAL IVPB SCH ×2 (06:15→15:53)
[2017-07-13] MEDS: INSULIN SLIDING SCALE (NOVOLOG) 1 VIAL SQ SCH ×2 (06:34→17:24)
[2017-07-13] MEDS ORDERED: PT OWN MED DRAWER 7, Y5N ONE ×5 (08:48→20:47)
[2017-07-13] MEDS: ENOXAPARIN NA (PORCINE) 40 MG/0.4 ML DISP.SYRIN SQ SCH (09:00)
[2017-07-13] MEDS: TOPIRAMATE 100 MG TABLET PO SCH ×2 (09:00→22:20)
[2017-07-13] MEDS: HYDROmorphone HCL CARPU-JECT 1 MG/1 ML DISP.SYRIN IVPB PRN ×3 (11:17→21:55)
[2017-07-13] MEDS ORDERED: ENOXAPARIN NA (PORCINE) 40 MG/0.4 ML DISP.SYRIN SQ SCH (13:30)
[2017-07-13] MEDS ORDERED: ACETAMINOPHEN/CAFFEINE/BUTALBITAL 1 TAB PO ONE (14:00)
[2017-07-13] MEDS: SODIUM CHLORIDE 1,000 ML IV SCH ×2 (17:27→17:28)
--- NOTE | 2017-07-13 21:12 | PN ---
Progress Note, Physician History of Present Illness: History of Present Illness: 36 year old female, followed by my associate, Dr. Berumen, though known to me, with a significant past medical history of chronic migraine headache who presents to the ED with complaints of migraine that began 1 week OUTSOLE BEVELER with no signs of relief. Patient reports driving home with 1 week OUTSOLE BEVELER when migraine began and has not subsided. Patient reports the migraine pain is non radiating pain localized in her left side of the head behind her left eye. Patient reports pain had been 10/10 in intensity. She reports going to [facility] ED night prior to admission for migraine and was given tylenol and ketorolac for pain with no relief. Patient reports intermittent episodes of nausea secondary to migraine headache. HX of occipital neuralgia and receives RF ablation for this at [facility]. Feels these JOYA are more related to migraines. takes occ. Dilaudid when JOYA overpowering; no hx of addiction tho this. receives Botox as outpt. HX of seizures-stable. Since admission she has been doing better, with improvement after medication, though still regresses towards end of dose. She is doing a little better with the Dilaudid but typically requires about a 10-13 days to recover. Today reports her - Current Medication List Current Medications: Active Medications Amitriptyline HCl (Elavil -) 50 mg PO HS [facility] Last Admin: 07/12/17 21:32 Dose: 50 mg Dihydroergotamine Mesylate (D.H.E. -) 1 mg IVPB Q8H [facility] Stop: 07/15/17 13:59 Last Admin: 07/13/17 14:17 Dose: 1 mg Enoxaparin Sodium (Lovenox -) 40 mg SQ DAILY [facility] Hydromorphone HCl (Dilaudid Injection -) 0.5 mg IVPB Q3H PRN PRN Reason: PAIN Last Admin: 07/13/17 17:23 Dose: 0.5 mg Sodium Chloride (Normal Saline -) 1,000 mls @ 100 mls/hr IV ASDIR [facility] Last Admin: 07/13/17 17:28 Dose: 100 mls/hr Famotidine/Sodium Chloride (Pepcid 20 Mg Premixed Ivpb -) 50 mls @ 100 mls/hr IVPB BID [facility] Last Admin: 07/13/17 09:57 Dose: 100 mls/hr Insulin Aspart (Novolog Vial Sliding Scale -) 1 vial SQ BIDAC [facility] PRN Reason: Protocol Last Admin: 07/13/17 17:24 Dose: Not Given Methylprednisolone Sodium Succinate (Solu-Medrol -) 250 mg IVPB Q6H-IV [facility] Last Admin: 07/13/17 16:47 Dose: 250 mg Ondansetron HCl (Zofran Injection) 8 mg IVPB Q8H [facility] Last Admin: 07/13/17 13:27 Dose: 8 mg Topiramate (Topamax -) 100 mg PO BID [facility] Last Admin: 07/13/17 09:00 Dose: 100 mg Valproate Sodium (Depacon Injection -) 500 mg IVPB TID [facility] Last Admin: 07/13/17 15:53 Dose: 500 mg - Objective Vital Signs: Vital Signs Temperature 98.4 F 07/13/17 18:00 Pulse Rate 57 L 07/13/17 18:00 Respiratory Rate 20 07/13/17 18:00 Blood Pressure 163/93 07/13/17 18:00 O2 Sat by Pulse Oximetry (%) 97 07/13/17 09:00 Labs: CBC, BMP 07/09/17 07:00 Assessment/Plan Pt. with status migrainosus, day 9 of admission. Pts headache is ranging in intensity from 6-9, subsides somewhat after Dilaudid which she is asking for sparingly. Pt. has had up to 13 days of inpatient treatment in the past leading to relief from headache. Plan: Cont. current medicationj regimen.
--- NOTE | 2017-07-13 21:42 | PN ---
Physical Exam: SUBJECTIVE: Patient seen and examined Patient denies having any double vision. Continues to have headache 05/23 today . Family at bedside OBJECTIVE: Vital Signs Temperature 98.4 F 07/13/17 18:00 Pulse Rate 57 L 07/13/17 18:00 Respiratory Rate 20 07/13/17 18:00 Blood Pressure 163/93 07/13/17 18:00 O2 Sat by Pulse Oximetry (%) 97 07/13/17 09:00 Vital Signs GENERAL: The patient is awake, alert, and fully oriented, in no acute distress. HEAD: Normal with no signs of trauma. EYES: PERRL, extraocular movements intact, sclera anicteric, conjunctiva clear. ENT: Ears normal, oropharynx clear without exudates, moist mucous membranes. NECK: Trachea midline, full range of motion, supple. LUNGS: Breath sounds equal, clear to auscultation bilaterally, no wheezes, no crackles, no accessory muscle use. HEART: Regular rate and rhythm, S1, S2 without murmur, rub or gallop. ABDOMEN: Soft, nontender, nondistended, normoactive bowel sounds, no guarding, no rebound, no hepatosplenomegaly, no masses. EXTREMITIES: 2+ pulses, warm, well-perfused, no edema. NEUROLOGICAL: Cranial nerves II through XII grossly intact. Normal speech, gait not observed. PSYCH: Normal mood, normal affect. SKIN: Warm, dry, normal turgor, no rashes or lesions noted CBCD WBC 8.5 K/mm3 (4.0-10.0) 07/07/17 07:00 RBC 4.64 M/mm3 (3.60-5.2) 07/07/17 07:00 Hgb 14.9 GM/dL (10.7-15.3) 07/07/17 07:00 Hct 43.2 % (32.4-45.2) 07/07/17 07:00 MCV 93.1 fl (80-96) 07/07/17 07:00 MCHC 34.6 g/dl (32.0-36.0) 07/07/17 07:00 RDW 12.8 % (11.6-15.6) 07/07/17 07:00 Plt Count 226 K/MM3 (134-434) 07/07/17 07:00 MPV 8.9 fl (7.5-11.1) 07/07/17 07:00 CMP Sodium 141 mmol/L (136-145) 07/09/17 07:00 Potassium 4.2 mmol/L (3.5-5.1) 07/09/17 07:00 Chloride 111 mmol/L (98-107) H 07/09/17 07:00 Carbon Dioxide 22 mmol/L (21-32) D 07/09/17 07:00 Anion Gap 8 (8-16) 07/09/17 07:00 BUN 11 mg/dL (7-18) D 07/09/17 07:00 Creatinine 0.6 mg/dL (0.55-1.02) 07/09/17 07:00 Creat Clearance w eGFR > 60 (>60) 07/09/17 07:00 Random Glucose 80 mg/dL (74-106) 07/09/17 07:00 Calcium 8.3 mg/dL (8.5-10.1) L 07/09/17 07:00 Total Bilirubin 0.4 mg/dL (0.2-1.0) D 07/09/17 07:00 AST 24 U/L (15-37) D 07/09/17 07:00 ALT 50 U/L (12-78) 07/09/17 07:00 Alkaline Phosphatase 68 U/L (45-117) 07/09/17 07:00 Total Protein 6.7 g/dl (6.4-8.2) 07/09/17 07:00 Albumin 3.3 g/dl (3.4-5.0) L 07/09/17 07:00 Laboratory Results - last 24 hr 07/13/17 07/13/17 06:33 17:22 POC Glucometer 127 156 Active Medications Generic Name Dose Route Start Last Admin Trade Name Freq PRN Reason Stop Dose Admin Amitriptyline HCl 50 mg 07/07/17 22:00 07/12/17 21:32 Elavil - PO 50 mg HS EULALIA Administration Dihydroergotamine Mesylate 1 mg 07/12/17 14:00 07/13/17 14:17 D.H.E. - IVPB 07/15/17 13:59 1 mg Q8H EULALIA Administration Enoxaparin Sodium 40 mg 07/14/17 10:00 Lovenox - SQ DAILY EULALIA Hydromorphone HCl 0.5 mg 07/12/17 11:46 07/13/17 17:23 Dilaudid Injection - IVPB 0.5 mg Q3H PRN Administration PAIN Sodium Chloride 1,000 mls @ 100 mls/hr 07/11/17 16:30 07/13/17 17:28 Normal Saline - IV 100 mls/hr ASDIR EULALIA Administration Famotidine/Sodium Chloride 50 mls @ 100 mls/hr 07/12/17 12:00 07/13/17 09:57 Pepcid 20 Mg Premixed Ivpb - IVPB 100 mls/hr BID EULALIA Administration Insulin Aspart 1 vial 07/12/17 12:00 07/13/17 17:24 Novolog Vial Sliding Scale - SQ Not Given BIDAC [facility] Protocol Methylprednisolone Sodium Succinate 250 mg 07/11/17 21:00 07/13/17 16:47 Solu-Medrol - IVPB 250 mg Q6H-IV EULALIA Administration Ondansetron HCl 8 mg 07/12/17 13:30 07/13/17 13:27 Zofran Injection IVPB 8 mg Q8H EULALIA Administration Topiramate 100 mg 07/06/17 22:00 07/13/17 09:00 Topamax - PO 100 mg BID EULALIA Administration Valproate Sodium 500 mg 07/07/17 22:00 07/13/17 15:53 Depacon Injection - IVPB 500 mg TID EULALIA Administration Home Medications Medication Instructions Recorded Amitriptyline HCl [Elavil -] 50 mg PO HS 07/06/17 Topiramate [Topamax] 100 mg PO BID 07/06/17 Verapamil HCl [Verapamil ER Pm] 120 mg PO DAILY 07/06/17 ASSESSMENT/PLAN: 36 y/o lady [facility] h/o occipital neuralgia and migraines who presented [facility] JOYA # Status Migrainosus continues : multiple pain medications continue as per neuro ,cont reglan, depakote and topiramate , dilaudid PRN, s/p 3 days of toradol , cont to hold verapamil due to interaction with DHE. On Benadryl solumedrol 250mg IV q6 day #3 for total of 3 days, MRI/MRa of brain completed, neurologist will discuss the result with the patient .Last headache was like a year ago and she was hospitalizated for 13 days total. check with neuro discharge planning, possible Saturday. DVT Px: Lovenox Visit type - Emergency Visit Emergency Visit: Yes ED Registration Date: 07/07/17 Care time: The patient presented to the Emergency Department on the above date and was hospitalized for further evaluation of their emergent condition. - New Patient This patient is new to me today: No - Critical Care Critical Care patient: No
[2017-07-13] MEDS: AMITRIPTYLINE HCL 25 MG TABLET (FP) PO SCH (22:19)
[2017-07-14] MEDS: VALPROATE SODIUM 500 MG/5 ML VIAL IVPB SCH ×4 (00:16→22:42)
[2017-07-14] MEDS: methylPREDNISolone NA SUCC 125 MG/2 ML VIAL IVPB SCH ×4 (02:48→19:59)
[2017-07-14] MEDS: ONDANSETRON 4 MG/2 ML VIAL IVPB SCH ×3 (05:02→20:43)
[2017-07-14] MEDS: INSULIN SLIDING SCALE (NOVOLOG) 1 VIAL SQ SCH ×2 (06:24→17:21)
[2017-07-14] MEDS: DIHYDROERGOTAMINE MESYLATE 1 MG/1 ML AMPULE IVPB SCH ×2 (06:25→14:29)
[2017-07-14] MEDS: HYDROmorphone HCL CARPU-JECT 1 MG/1 ML DISP.SYRIN IVPB PRN ×3 (08:15→20:43)
[2017-07-14] MEDS ORDERED: ENOXAPARIN NA (PORCINE) 40 MG/0.4 ML DISP.SYRIN SQ SCH (10:00)
[2017-07-14] MEDS ORDERED: amLODIPine BESYLATE 5 MG TABLET (FP) PO SCH (10:30)
[2017-07-14] MEDS ORDERED: PT OWN MED DRAWER 7, Y5N ONE ×2 (10:49→14:06)
--- NOTE | 2017-07-14 10:52 | PN ---
Physical Exam: SUBJECTIVE: Patient seen and examined. No acute events overnight. Pt still complaining of severe migraine, states that it is not better than yesterday. Still 9/10, and it decreases to 6/10 within 2 hours of receiving pain meds. Her nausea is still severe, but improved after switching from reglan to zofran. OBJECTIVE: Vital Signs Period Temp Pulse Resp BP Sys/Ames Pulse Ox Last 24 Hr 96.8 F-98.4 F 54-87 18-20 137-179/81-105 97 GENERAL: The patient is awake, alert, and fully oriented, in moderate distress HEAD: Normal with no signs of trauma. EYES: PERRL, extraocular movements intact, sclera anicteric, conjunctiva clear. No ptosis. ENT: Ears normal, nares patent, oropharynx clear without exudates, moist mucous membranes. NECK: Trachea midline, full range of motion, supple. LUNGS: Breath sounds equal, clear to auscultation bilaterally, no wheezes, no crackles, no accessory muscle use. HEART: Regular rate and rhythm, S1, S2 without murmur, rub or gallop. ABDOMEN: Soft, nontender, nondistended, normoactive bowel sounds, no guarding, no rebound, no hepatosplenomegaly, no masses. EXTREMITIES: 2+ pulses, warm, well-perfused, no edema. NEUROLOGICAL: Cranial nerves II through XII grossly intact. Normal speech, gait not observed. PSYCH: distressed SKIN: Warm, dry, normal turgor, no rashes or lesions noted Laboratory Results - last 24 hr 07/13/17 07/14/17 17:22 06:19 POC Glucometer 156 147 Active Medications Generic Name Dose Route Start Last Admin Trade Name Peterq PRN Reason Stop Dose Admin Amitriptyline HCl 50 mg 07/07/17 22:00 07/13/17 22:19 Elavil - PO 50 mg HS EULALIA Administration Amlodipine Besylate 5 mg 07/14/17 10:30 Norvasc - PO DAILY EULALIA Dihydroergotamine Mesylate 1 mg 07/12/17 14:00 07/14/17 06:25 D.H.E. - IVPB 07/15/17 13:59 1 mg Q8H EULALIA Administration Enoxaparin Sodium 40 mg 07/14/17 10:00 Lovenox - SQ DAILY EULALIA Hydromorphone HCl 0.5 mg 07/12/17 11:46 07/14/17 08:15 Dilaudid Injection - IVPB 0.5 mg Q3H PRN Administration PAIN Sodium Chloride 1,000 mls @ 100 mls/hr 07/11/17 16:30 07/13/17 17:28 Normal Saline - IV 100 mls/hr ASDIR EULALIA Administration Famotidine/Sodium Chloride 50 mls @ 100 mls/hr 07/12/17 12:00 07/13/17 22:28 Pepcid 20 Mg Premixed Ivpb - IVPB 100 mls/hr BID EULALIA Administration Insulin Aspart 1 vial 07/12/17 12:00 07/14/17 06:24 Novolog Vial Sliding Scale - SQ Not Given BIDAC [facility] Protocol Methylprednisolone Sodium Succinate 250 mg 07/11/17 21:00 07/14/17 02:48 Solu-Medrol - IVPB 250 mg Q6H-IV EULALIA Administration Ondansetron HCl 8 mg 07/12/17 13:30 07/14/17 05:02 Zofran Injection IVPB 8 mg Q8H EULALIA Administration Topiramate 100 mg 07/06/17 22:00 07/13/17 22:20 Topamax - PO 100 mg BID EULALIA Administration Valproate Sodium 500 mg 07/07/17 22:00 07/14/17 05:31 Depacon Injection - IVPB 500 mg TID EULALIA Administration ASSESSMENT/PLAN: 36F w/ hx of chronic migraines, seizure disorder, and HTN admitted for status migrainosus, finished 5 day course of IV DHE, now being treated with valproate, solumedrol, DHE, and dilaudid PRN with minimal improvement in symptoms. #Acute Migraine -Neuro on board- Dr. Berumen (closely followed by him as outpt, pt receives botox), appreciated recs -meds per neuro: continue valproate 500mg TID, dilaudid 0.5mg q3h PRN, amitripyline 50mg qd, solumedrol 250mg q6h, DHE 1mg IV q8h, and zofran 8mg q8h -MRI/MRA w/ contrast: 3.5mm focal enhancement anterior to R ICA bifurcation suggesting vascular loop vs. less likely aneurysm, rec CT angio head to further characterize. -monitor response. Per neuro, pt's migraines can last 10-13 days. #Nausea -significant nausea without emesis, pt has no appetite as a result -zofran 8mg q8h #Seizure Disorder -continue topiramate 100mg BID #HTN -BPs today 135-180/80-105, HRs 55-85 -verapamil held due to interaction with DHE -started amlodipine 5mg qd -continue monitoring #hyperglycemia 2/2 steroids -BGM, ISS #FEN/PPx -NS at 100 -wnl in last BMP -sodium controlled diet -pepcid 20mg BID -lovenox 40 #Dispo -home pending adequate treatment response Jeremías Dumas MD PGY1 Visit type - Emergency Visit Emergency Visit: Yes ED Registration Date: 07/07/17 Care time: The patient presented to the Emergency Department on the above date and was hospitalized for further evaluation of their emergent condition. - New Patient This patient is new to me today: No - Critical Care Critical Care patient: No
[2017-07-14] MEDS: FAMOTIDINE 20 MG/50 ML IVPB 50 ML IVPB SCH ×2 (11:08→21:30)
[2017-07-14] MEDS: TOPIRAMATE 100 MG TABLET PO SCH ×2 (11:08→21:30)
--- NOTE | 2017-07-14 12:00 | PN ---
Progress Note (short form) - Note Progress Note: Pt. reports improved nausea today. Headache intensity ranges still from 6-9/10. She is not on verapamil, feels it was helping her. Neurologic examination non- focal Plan: Cont. current med. regimen, today is day 9, Solumedrol may be better than decadron she reports. -Will restart Verapamil 40mg bid. -Will d/w Dr. rodriguez further prophylactic treatment. Destin Feldman MD
--- NOTE | 2017-07-14 14:07 | PN ---
Teaching Attending Note Name of Resident: Jeremías Dumas ATTENDING PHYSICIAN STATEMENT I saw and evaluated the patient. I reviewed the resident's note and discussed the case with the resident. I agree with the resident's findings and plan as documented. SUBJECTIVE: Still C/O head ache despite multiple mediction tral. OBJECTIVE: Vital Signs Period Temp Pulse Resp BP Sys/Ames Pulse Ox Last 24 Hr 96.8 F-98.4 F 54-87 18-20 137-179/81-105 97 Young F not in distress c/o 9/10 head ache, feels nausea is improving HEENT: MM moist, no anemia, PERRLA EOMI NECK: No JVD No Bruit CHEST: CTA B/L no added sounds ABD: No distention, non tender bs + EXT: No edema feet, no calf tenderness Pulses +2 COMMUNICATION CLERK: AOX3 non focal LABS: CBC, BMP 07/07/17 07:00 07/09/17 07:00 ASSESSMENT AND PLAN: 36 trs old F with H/O HTN and migraine present with acute Migraine, still c/o head ache despite multiple regimen. Active Medications Generic Name Dose Route Start Last Admin Trade Name Freq PRN Reason Stop Dose Admin Amitriptyline HCl 50 mg 07/07/17 22:00 07/13/17 22:19 Elavil - PO 50 mg HS [facility] Administration Dihydroergotamine Mesylate 1 mg 07/12/17 14:00 07/14/17 06:25 D.H.E. - IVPB 07/15/17 13:59 1 mg Q8H E[facility] Administration Diltiazem HCl 30 mg 07/14/17 22:00 Cardizem - PO BID EULALIA Enoxaparin Sodium 40 mg 07/14/17 10:00 07/14/17 11:08 Lovenox - SQ 40 mg DAILY [facility] Administration Hydromorphone HCl 0.5 mg 07/12/17 11:46 07/14/17 13:21 Dilaudid Injection - IVPB 0.5 mg Q3H PRN Administration PAIN Sodium Chloride 1,000 mls @ 100 mls/hr 07/11/17 16:30 07/13/17 17:28 Normal Saline - IV 100 mls/hr ASDIR [facility] Administration Famotidine/Sodium Chloride 50 mls @ 100 mls/hr 07/12/17 12:00 07/14/17 11:08 Pepcid 20 Mg Premixed Ivpb - IVPB 100 mls/hr BID [facility] Administration Insulin Aspart 1 vial 07/12/17 12:00 07/14/17 06:24 Novolog Vial Sliding Scale - SQ Not Given BIDAC [facility] Protocol Methylprednisolone Sodium Succinate 250 mg 07/11/17 21:00 07/14/17 10:38 Solu-Medrol - IVPB 250 mg Q6H-IV [facility] Administration Ondansetron HCl 8 mg 07/12/17 13:30 07/14/17 14:00 Zofran Injection IVPB 8 mg Q8H [facility] Administration Topiramate 100 mg 07/06/17 22:00 07/14/17 11:08 Topamax - PO 100 mg BID [facility] Administration Valproate Sodium 500 mg 07/07/17 22:00 07/14/17 05:31 Depacon Injection - IVPB 500 mg TID E[facility]AL[facility] Administration Intractable Migraine Head ache: [place] F/U neurological recommendation and reevaluation as ptaient is on multiple meds for past 9 days
[2017-07-14] MEDS: SODIUM CHLORIDE 1,000 ML IV SCH (18:05)
[2017-07-14] MEDS: AMITRIPTYLINE HCL 25 MG TABLET (FP) PO SCH (21:30)
[2017-07-14] MEDS: dilTIAZem HCL 30 MG TABLET (FP) PO SCH ×2 (21:33→22:51)
[2017-07-14] MEDS ORDERED: VERAPAMIL HCL 40 MG TABLET (FP) PO SCH (22:00)
[2017-07-15] MEDS: DIHYDROERGOTAMINE MESYLATE 1 MG/1 ML AMPULE IVPB SCH ×2 (00:31→06:40)
[2017-07-15] MEDS ORDERED: amLODIPine BESYLATE 5 MG TABLET (FP) PO ONE (01:47)
[2017-07-15] MEDS: HYDROmorphone HCL CARPU-JECT 1 MG/1 ML DISP.SYRIN IVPB PRN (01:52)
[2017-07-15] MEDS: methylPREDNISolone NA SUCC 125 MG/2 ML VIAL IVPB SCH (01:59)
[2017-07-15] MEDS ORDERED: ENALAPRILAT DIHYDRATE 2.5 MG/2 ML VIAL IVPB ONE ×2 (03:56→04:45)
--- NOTE | 2017-07-15 04:55 | HOSP ---
Subjective - Review of Symptoms Events since last encounter: 36yo F with PMH of migraines, presents with elevated blood pressure and pain that is worse/changed from her normal headache. <Anushka Mckinnon - Last Filed: 07/15/17 05:10> - Review of Symptoms Subjective: Called by Nurse to infom or radiology read of positive SAH Neuro: CN II-XII intact No motor defecits Neurosx to be called STAT, Neurology also notified <Michelle Chi - Last Filed: 07/15/17 07:19> Physical Examination Vital Signs: Constitutional: Yes: Well Nourished, Severe Distress Eyes: Yes: Conjunctiva Clear, EOM Intact HENT: Yes: Atraumatic, Normocephalic Neck: Yes: Supple, Trachea Midline Cardiovascular: Yes: Regular Rate and Rhythm, Bradycardia Respiratory: Yes: CTA Bilaterally. No: Accessory Muscle Use Gastrointestinal: Yes: Soft. No: Tenderness Musculoskeletal: No: Joint Swelling, Muscle Pain Extremities: Yes: WNL. No: Cold, Erythema Neurological: Yes: Alert, Oriented Labs: CBC, [facility] 07/09/17 07:00 <Anushka Mckinnon - Last Filed: 07/15/17 05:10> Vital Signs: Vital Signs Temperature 98.0 F 07/15/17 05:00 Pulse Rate 65 07/15/17 06:46 Respiratory Rate 20 07/15/17 06:46 Blood Pressure 172/87 07/15/17 06:46 O2 Sat by Pulse Oximetry (%) 97 07/14/17 22:00 Labs: CBC, BMP 07/09/17 07:00 <Michelle Chi - Last Filed: 07/15/17 07:19> Hospitalist Encounter Assessment: Vital Signs - 8 hr 07/14/17 07/15/17 07/15/17 22:00 00:46 01:47 Temperature 98.2 F Pulse Rate 54 L 58 L 52 L Respiratory 16 16 18 Rate Blood Pressure 161/103 169/99 185/107 O2 Sat by Pulse 97 Oximetry (%) 07/15/17 03:49 Temperature Pulse Rate 76 Respiratory Rate Blood Pressure 138/107 O2 Sat by Pulse Oximetry (%) Cardizem held by nursing at 22:00 2/2 heart rate. Nursing reported persistent elevated BP at 1:30 -> pt's dose of Norvasc 5mg PO given at 1:45. Pt c/o headache, somewhat relieved by dilaudid 0.5mg IVPB prn dose. Nursing reported persistent elevated BP at 3:45. Pt c/o headache being worse/changed than normal for her. Noted DHE dose increased from 0.5mg to 1mg on 07/12/17. - transfer to Telemetry - Vasotec 2.5mg IVPB - Head CT noncontrast Will continue to monitor pt's vital signs and headache symptoms. <Anushka Mckinnon - Last Filed: 07/15/17 05:10> Visit type - Emergency Visit Emergency Visit: Yes ED Registration Date: 07/07/17 Care time: The patient presented to the Emergency Department on the above date and was hospitalized for further evaluation of their emergent condition. - New Patient This patient is new to me today: Yes Date on this admission: 07/15/17 - Critical Care Critical Care patient: No <Anushka Mckinnon - Last Filed: 07/15/17 05:10>
[2017-07-15] MEDS: INSULIN SLIDING SCALE (NOVOLOG) 1 VIAL SQ SCH (06:40)
[2017-07-15] MEDS ORDERED: NICARDIPINE 25 MG in DEXTROSE 5%-WATER - 240 ML IVPB SCH ×2 (07:45→08:45)
[2017-07-15 08:08] LABS: BASOPHIL 0.2 % (0-2.0); MCH 31.1 pg (25.7-33.7); MCHC 34.4 g/dl (32.0-36.0); MEAN CELL VOLUME 90.2 fl (80-96); MEAN PLT VOLUME 8.7 fl (7.5-11.1); NEUTROPHILS 88.4 % (42.8-82.8); PLATELET COUNT 246 K/MM3 (134-434); RDW 12.2 % (11.6-15.6); WHITE BLOOD COUNT 8.8 K/mm3 (4.0-10.0)
[2017-07-15 08:21] LABS: INR 1.27 (0.82-1.09)
[2017-07-15 08:24] LABS: ACTIVATED PTT 24.7 SECONDS (26.9-34.4)
[2017-07-15 08:35] LABS: ALBUMIN 3.4 g/dl (3.4-5.0); ALK PHOS 63 U/L (45-117); ANION GAP 11 (8-16); BILIRUBIN,TOTAL 0.4 mg/dL (0.2-1.0); CALCIUM 8.6 mg/dL (8.5-10.1); CO2 25 mmol/L (21-32); CREATININE 0.7 mg/dL (0.55-1.02); GLUCOSE,RANDOM 147 mg/dL (74-106); MAGNESIUM 2.4 mg/dL (1.8-2.4); PHOSPHOROUS 2.7 mg/dL (2.5-4.9); SGOT/AST 12 U/L (15-37); SGPT/ALT 37 U/L (12-78)
[2017-07-15] MEDS ORDERED: niCARdipine HCL 25 MG/10 ML AMPUL IVPB ONE (08:37)
--- NOTE | 2017-07-15 09:01 | CONSULT ---
Consultation: REQUESTING PROVIDER: CONSULT REQUEST: We have been asked to medically evaluate this patient for SAH. HISTORY OF PRESENT ILLNESS: 36 yo woman w/ pmh of migraines, who initially presented w/ elevated BP and severe JOYA (10/10 pain), which persisted during past week during admission, now w / CT-confirmed L frontal SAH, admitted to ICU for further management. Per patient, JOYA became significantly worse overnight and has persisted this AM, , most prominent in L frontal region. Denies any focal neurologic changes. Hypertensive overnight to 180s systolic, received Norvasc 5mg PO and started on nicardipine gtt 2.5 mg. Pt endorses feeling very nervous/scared. Neurosurgery aware, plan for transfer to [facility] for further management/possible craniotomy w/ evacuation. Denies any JOYA, vision changes, paresthesias, weakness, N/V, neck- stiffness, palpitations, CP, dyspnea or LE swelling. PMH: Migraine PSH: Hysterectomy Social Hx: Never smoked, no alcohol or drug use Allergies: NKDA REVIEW OF SYSTEMS: CONSTITUTIONAL: Absent: fever, chills, diaphoresis, generalized weakness, malaise, loss of appetite, weight change HEENT: Absent: rhinorrhea, nasal congestion, throat pain, throat swelling, difficulty swallowing, ear pain, eye pain, visual changes CARDIOVASCULAR: Absent: chest pain, syncope, palpitations, irregular heart rate, lightheadedness , peripheral edema RESPIRATORY: Absent: cough, shortness of breath, dyspnea with exertion, orthopnea, hemoptysis GASTROINTESTINAL: Absent: abdominal pain, abdominal distension, nausea, vomiting, diarrhea GENITOURINARY: Absent: dysuria, frequency, urgency, hesitancy, hematuria NEUROLOGIC: JOYA Absent: focal weakness or paresthesias, dizziness, unsteady gait, seizure, mental status changes, bladder or bowel incontinence PSYCHIATRIC: Absent: anxiety, depression, suicidal or homicidal ideation, hallucinations. PHYSICAL EXAMINATION Vital Signs - 24 hr 07/14/17 07/14/17 07/14/17 08:54 09:00 14:37 Temperature 96.8 F L 98.2 F Pulse Rate 70 57 L Respiratory 18 18 Rate Blood Pressure 154/85 152/89 O2 Sat by Pulse 97 Oximetry (%) 07/14/17 07/14/17 07/15/17 18:00 22:00 00:46 Temperature 98.2 F 98.2 F Pulse Rate 62 54 L 58 L Respiratory 20 16 16 Rate Blood Pressure 144/85 161/103 169/99 O2 Sat by Pulse 97 Oximetry (%) 07/15/17 07/15/17 07/15/17 01:47 03:49 05:00 Temperature 98.0 F Pulse Rate 52 L 76 60 Respiratory 18 20 Rate Blood Pressure 185/107 138/107 170/110 O2 Sat by Pulse Oximetry (%) 07/15/17 06:46 Temperature Pulse Rate 65 Respiratory 20 Rate Blood Pressure 172/87 O2 Sat by Pulse Oximetry (%) GENERAL: Awake, alert, and fully oriented, mild distress HEAD: Normal with no signs of trauma. EYES: Pupils equal, round and reactive to light, extraocular movements intact, sclera anicteric, conjunctiva clear. No lid lag. EARS, NOSE, THROAT: Ears normal, nares patent, oropharynx clear without exudates. Moist mucous membranes. NECK: Normal range of motion, supple without lymphadenopathy, JVD, or masses. No bruit noted LUNGS: Breath sounds equal, clear to auscultation bilaterally. No wheezes, and no crackles. No accessory muscle use. HEART: Regular rate and rhythm, normal S1 and S2 without murmur, rub or gallop. ABDOMEN: Soft, nontender, not distended, normoactive bowel sounds, no guarding, no rebound, no masses. No hepatomegaly or splenomegaly. MUSCULOSKELETAL: Normal range of motion at all joints. No bony deformities or tenderness. UPPER EXTREMITIES: 2+ pulses, warm, well-perfused. Cap refill <2 seconds. No peripheral edema. LOWER EXTREMITIES: 2+ pulses, warm, well-perfused. No calf tenderness. No peripheral edema. NEUROLOGICAL: Cranial nerves II-XII intact. 5/5 strength in all muscle groups. Decreased sensation to light touch on R anterior/posterior arm and R anterior tijerina and dorsum of foot. Normal speech. Normal gait. PSYCHIATRIC: Cooperative. MIld distress. SKIN: Warm, dry, normal turgor, no rashes or lesions noted. Laboratory Results - last 24 hr 07/14/17 07/15/17 07/15/17 17:12 06:44 07:55 WBC 8.8 RBC 5.00 Hgb 15.5 H Hct 45.1 MCV 90.2 MCH 31.1 MCHC 34.4 RDW 12.2 Plt Count 246 MPV 8.7 Neutrophils % 88.4 H D Lymphocytes % 7.5 L D Monocytes % 3.9 Eosinophils % 0.0 D Basophils % 0.2 PT with INR INR PTT (Actin FS) Sodium Potassium Chloride Carbon Dioxide Anion Gap BUN Creatinine Creat Clearance w eGFR POC Glucometer 189 153 Random Glucose Calcium Phosphorus Magnesium Total Bilirubin AST ALT Alkaline Phosphatase Total Protein Albumin 07/15/17 07/15/17 07:55 07:55 WBC RBC Hgb Hct MCV MCH MCHC RDW Plt Count MPV Neutrophils % Lymphocytes % Monocytes % Eosinophils % Basophils % PT with INR 14.00 H INR 1.27 H PTT (Actin FS) 24.7 L Sodium 141 Potassium 3.2 L D Chloride 105 Carbon Dioxide 25 Anion Gap 11 BUN 14 D Creatinine 0.7 Creat Clearance w eGFR > 60 POC Glucometer Random Glucose 147 H D Calcium 8.6 Phosphorus 2.7 Magnesium 2.4 Total Bilirubin 0.4 AST 12 L D ALT 37 D Alkaline Phosphatase 63 Total Protein 7.0 Albumin 3.4 Active Medications Generic Name Dose Route Start Last Admin Trade Name Freq PRN Reason Stop Dose Admin Nicardipine HCl 25 mg/ 250 mls @ 25 mls/hr 07/15/17 08:45 07/15/17 08:48 Dextrose IVPB 100 mls/hr TITR EULALIA Administration Protocol 2.5 MG/HR CT Head (07/15 AM) - L frontal SAH MRI head (07/11) - Possible aneurysm near R MCA. Otherwise, unremarkable. ASSESSMENT/PLAN: 36 yo woman w/ pmh of migraines, who initially presented w/ elevated BP and severe JOYA (10/10 pain), which persisted during past week during admission, now w / CT-confirmed L frontal SAH, admitted to ICU for further management. Pt currently awaiting transfer to [facility] upon receipt of open bed in ICU for further management. #Neuro - CT-confirmed L frontal SAH - Neurosurgery consulted. Aware - Awaiting transfer to [facility] for further management. #Cards - Hypertensive crisis overnight to 180s systolic - Nicardipine gtt 2.5 mg - Received Norvasc 5mg this AM - Diltiazem 30 PO BID held #Pulm -O2 2L NC PRN. Titrate to >94% #Renal -Strict Is&Os -Daily BMPs -Monitor lytes #Heme - Trend H/H. Transfuse at <7 #GI - Renal diet #FEN -Fluids: PO fluids -Electrolytes: Daily BMPs, Trend BUN/Cr -Nutrition: Renal diet #PPX -SCDs for DVT ppx -PPI for GI ppx #Dispo - Dispo to ICU for further monitoring/management Matt Boswell, PGY1 Plan discussed with attending, Dr. Sharma Dispo: We will continue to follow the patient. Thank you for this consultative opportunity. Visit type - Emergency Visit Emergency Visit: No - New Patient This patient is new to me today: Yes Date on this admission: 07/15/17 - Critical Care Critical Care patient: Yes Total Critical Care Time (in minutes): 25
[2017-07-15] MEDS ORDERED: ACETAMINOPHEN 1000 MG/100 ML VIAL (NON FORMULARY) IVPB PRN (09:26)
[2017-07-15] MEDS ORDERED: dilTIAZem HCL 30 MG TABLET (FP) PO SCH (10:00)
[2017-07-15 10:05] VITALS: TEMP 97.8
[2017-07-15 11:08] VITALS: BP 124/67; PULSE 76
--- NOTE | 2017-07-15 13:13 | PN ---
Teaching Attending Note Name of Resident: Jeremías Dumas ATTENDING PHYSICIAN STATEMENT I saw and evaluated the patient. I reviewed the resident's note and discussed the case with the resident. I agree with the resident's findings and plan as documented. SUBJECTIVE:c/o severe L sided frontal JOYA with only modest improvement since this AM. unable to characterize how it is different from before "it just is". states she felt weak walking to the bathroom like one side of her body was weaker than the other. denies CP, SOB, fever, chills, blurred vision, tinnitus OBJECTIVE: Last Vital Signs Temp Pulse Resp BP Pulse Ox 97.8 F 76 16 124/67 100 07/15/17 09:56 07/15/17 10:15 07/15/17 10:15 07/15/17 10:15 07/15/17 09:45 General mild distress CV S1 S2 RRR no murmur/rub/gallop Lungs CTA B/L no wheezing/rales/rhonchi Neuro Decreased sensation R sided of face, no tongue deviation, no slurred speech, no facial droop, + pronator on the R. strength 4/4 B/L UE decreased sensation to RLE 2/5 strength. 5/5 LLE and sensation grossly intact. gait testing deferred ASSESSMENT AND PLAN: 36yo F with PMH JOYA presented to the ER with status migrainous and was being treated with sudden change in JOYA quality assoc with HTN (170/110) with urgent repeat Head CT done showing subarachnoid bleed 1. Subarachnoid bleed with L frontal sulci- Imaging from neuro nutrition services aide was obtained this morning during sign out. pt was emergently placed on nicardipine ggt and transferred to MICU. spoke with Dr Huynh from neurosurgery who recommended transfer to tertiary care center for possible neuro IR embolization which is unavailable at this facility. spoke with Dr Berumen who agreed and helped facilitated transfer. pt accepted by Dr Flynn at [facility]. d/w pt risks and benefits of transfer. agrees with transfer for high level of care. The care of this patient involved high complexity decision making to prevent further life threatening deterioration of the patient's condition and/or to evaluate & treat vital organ system(s) failure or risk of failure. 40 minutes
--- NOTE | 2017-07-15 13:20 | DS ---
Physical Exam: SUBJECTIVE: Patient seen and examined. Overnight, pt became hypertensive to 180-190s and complained of a severe left- sided bounding headache significantly worse compared to that during entire admission. The night MD ordered norvasc 5mg and a stat CT head. During sign out in the am, [id number] notified night MD that the pt had a left frontal sulcus SAH. This was relayed to the whole medical team. The pt was started on a nicardipine gtt, transferred to the ICU, and Dr. Huynh from neurosurgery was contacted. He recommended transfer to tertiary care center for possible neuro IR embolization which is unavailable at this facility. Dr Berumen from neurology was contacted who agreed and helped facilitate transfer. The pt was accepted by Dr. Flynn at [facility]. d/w pt risks and benefits of transfer, and she agrees with transfer for high level of care. OBJECTIVE: Vital Signs Period Temp Pulse Resp BP Sys/Ames Pulse Ox Last 24 Hr 97.8 F-98.2 F 52-83 16-20 123-185/67-110 97-100 PHYSICAL EXAM GENERAL: AAOx2 (name and place), lethargic, decreased sensation on right side of face, arm, and leg. motor function diffusely decreased. congenital anisocoria. no facial droop, no pronator drift. HEAD: Normal with no signs of trauma. EYES: congenital anisocoria ENT: Ears normal, nares patent, oropharynx clear without exudates, moist mucous membranes. NECK: Trachea midline, full range of motion, supple. LUNGS: Breath sounds equal, clear to auscultation bilaterally, no wheezes, no crackles, no accessory muscle use. HEART: tachycardic, normal rhythm without murmur, rub or gallop. ABDOMEN: Soft, nontender, nondistended, normoactive bowel sounds, no guarding, no rebound, no hepatosplenomegaly, no masses. EXTREMITIES: 2+ pulses, warm, well-perfused, no edema. NEUROLOGICAL: Cranial nerves II through XII grossly intact. Normal speech, gait not observed. PSYCH: distressed SKIN: Warm, dry, normal turgor, no rashes or lesions noted. LABS Laboratory Results - last 24 hr 07/14/17 07/15/17 07/15/17 17:12 06:44 07:55 WBC 8.8 RBC 5.00 Hgb 15.5 H Hct 45.1 MCV 90.2 MCH 31.1 MCHC 34.4 RDW 12.2 Plt Count 246 MPV 8.7 Neutrophils % 88.4 H D Lymphocytes % 7.5 L D Monocytes % 3.9 Eosinophils % 0.0 D Basophils % 0.2 PT with INR INR PTT (Actin FS) Sodium Potassium Chloride Carbon Dioxide Anion Gap BUN Creatinine Creat Clearance w eGFR POC Glucometer 189 153 Random Glucose Calcium Phosphorus Magnesium Total Bilirubin AST ALT Alkaline Phosphatase Total Protein Albumin 07/15/17 07/15/17 07:55 07:55 WBC RBC Hgb Hct MCV MCH MCHC RDW Plt Count MPV Neutrophils % Lymphocytes % Monocytes % Eosinophils % Basophils % PT with INR 14.00 H INR 1.27 H PTT (Actin FS) 24.7 L Sodium 141 Potassium 3.2 L D Chloride 105 Carbon Dioxide 25 Anion Gap 11 BUN 14 D Creatinine 0.7 Creat Clearance w eGFR > 60 POC Glucometer Random Glucose 147 H D Calcium 8.6 Phosphorus 2.7 Magnesium 2.4 Total Bilirubin 0.4 AST 12 L D ALT 37 D Alkaline Phosphatase 63 Total Protein 7.0 Albumin 3.4 MRI (07/12): 3.5 mm focal enhancement anterior to right ICA bifuraction likely suggesting vascular loop vs. less likely aneurysm CT head (07/15): acute SAH in the left frontal sulcus HOSPITAL COURSE: Date of Admission:07/07/17 Date of Discharge: 07/15/17 36F w/ hx of chronic migraines, seizure disorder, occipital neuralgia, and HTN admitted for status migrainosus, treated with DHE, valproate, solumedrol, and dilaudid PRN with minimal improvement in symptoms. Pt was followed by neurology , and medications were adjusted per their recs. Her home verapamil was held due to interaction with DHE. Her home meds for seizure disorder were continued. The pt was here for 8 days before developing severe HTN and marked worsening in severity and quality of migraine, and the pt was found to have an acute SAH in the left frontal sulcus. After discussion with neurosurgery and neurology in the hospital and explaining the risks and benefits to the pt, the pt was transferred to [facility] for possible neuro IR embolization which is unavailable at this facility. Jeremías Dumas MD PGY1 Minutes to complete discharge: 39 Discharge Summary Reason For Visit: MIGRAINE HEADACHE Current Active Problems Migraine (Acute) Status migrainosus (Acute) Condition: Stable - Instructions Diet, Activity, Other Instructions: You were treated for a migraine in the hospital for 8 days. On 07/14/17, you were found to have an acute subarachnoid hemorrhage (which is a bleed in your brain). After contacting neurology and neurosurgery, it was determined that you should be transferred to [facility] for possible IR embolization. 1. After receiving treatment for your subarachnoid hemorrhage, please follow up with Dr. Berumen within one week. Referrals: Deni Berumen DO [Primary Care Provider] - Disposition: TRANSFER ACUTE CARE/OTHER HOSP - Home Medications Comprehensive Discharge Medication List: Ambulatory Orders Amitriptyline HCl [Elavil -] 50 mg PO HS 07/06/17 Topiramate [Topamax] 100 mg PO BID 07/06/17 Verapamil HCl [Verapamil ER Pm] 120 mg PO DAILY 07/06/17 This patient is new to me today: No Emergency Visit: Yes ED Registration Date: 07/07/17 Care time: The patient presented to the Emergency Department on the above date and was hospitalized for further evaluation of their emergent condition. Critical Care patient: Yes Total Critical Care Time (in minutes): 45 Critical Care Statement: The care of this patient involved high complexity decision making to prevent further life threatening deterioration of the patient 's condition and/or to evaluate & treat vital organ system(s) failure or risk of failure. - Discharge Referral Referred to [facility] No
== END 2017-07-15 10:49 | disposition short-term general hospital (02) | DRG 65 ==
LOC: JER 20:10 → JERBED 22:59 → INTOOBSV 22:59 → UNDOADMIN 23:26 → JERBED 23:26 → J5S 07-06 09:00 → OBSVTOIN 07-07 15:07 → J4W 07-15 05:45 → JICU 07-15 08:19
PROVIDERS: ADMIT Internal Medicine; ATTEND Internal Medicine
DX: I60.8 Other nontraumatic subarachnoid hemorrhage (principal); G40.802 Other epilepsy, not intractable, without status epilepticus; I16.9 Hypertensive crisis, unspecified; G43.801 Other migraine, not intractable, with status migrainosus; I10 Essential (primary) hypertension; M54.81 Occipital neuralgia; H53.149 Visual discomfort, unspecified; R11.0 Nausea; R73.9 Hyperglycemia, unspecified; E09.9 Drug or chemical induced diabetes mellitus without complications
CPT/HCPCS: 36415; 70450-TC; 70545-TC; 70552-TC; 80048; 80053; 83735; 84100; 85025; 85027; 85610; 85730; 93005; 93010; 99284-25; A9576; G0378